=== PATIENT | male | born 1950 | race Caucasian/White ===

== ENCOUNTER 2016-07-18 13:26 | Outpatient (CLI) | payer MEDICARE, OTHER | END 2016-07-18 13:27 | disposition home or self-care (01) | DX: D72.829 Elevated white blood cell count, unspecified (principal) ==

== ENCOUNTER 2016-07-31 10:08 | Day surgery (SDC) | payer MEDICARE, OTHER ==
[2016-07-31] MEDS ORDERED: LACTATED RINGERS 500 ML IV ONE (10:17)
[2016-07-31] MEDS ORDERED: LIDOCAINE-MPF 2% 5 ML VIAL IM ONE (11:00)
[2016-07-31] MEDS ORDERED: MIDAZOLAM 2 MG/2 ML VIAL IVP ONE (11:00)
[2016-07-31] MEDS ORDERED: PROPOFOL 200 MG/20 ML VIAL IVP ONE (11:00)
[2016-07-31] MEDS ORDERED: BRIMONIDINE 0.2% OPHTH DROPS 5 ML OPTH ONE (11:03)
[2016-07-31] MEDS ORDERED: PROPARACAINE 0.5% OPHTH DROPS 15 ML OPTH ONE (11:03)
[2016-07-31] MEDS ORDERED: levoFLOXacin 0.5% OPHTH DROPS 5 ML OPTH ONE (11:03)
[2016-07-31] MEDS ORDERED: EPINEPHrine 1 MG/ML AMP IO ONE (11:03)
[2016-07-31] MEDS ORDERED: TETRACAINE OPHTH DROPS 2 ML OPTH ONE (11:03)
[2016-07-31] MEDS ORDERED: BSS/LIDOCAINE/EPINEPHRINE 1 ML SYRINGE IO ONE (11:04)
[2016-07-31] MEDS ORDERED: CHONDR SULF/HYALURONATE SYRINGE IO ONE (11:04)
== END 2016-07-31 10:09 | disposition home or self-care (01) ==
PROC: 08RJ3JZ Replacement of Right Lens with Synthetic Substitute, Percutaneous Approach (ICD-10-PCS; principal; 2016-07-31 11:15)
DX: E11.36 Type 2 diabetes mellitus with diabetic cataract (principal); H25.9 Unspecified age-related cataract; Z79.84 Long term (current) use of oral hypoglycemic drugs; Z86.73 Personal history of transient ischemic attack (TIA), and cerebral infarction without residual deficits; K21.9 Gastro-esophageal reflux disease without esophagitis
CPT/HCPCS: 66984; V2632; V2787

== ENCOUNTER 2016-08-14 09:37 | Day surgery (SDC) | payer MEDICARE, OTHER ==
[2016-08-14] MEDS ORDERED: LACTATED RINGERS 500 ML IV ONE (09:53)
[2016-08-14] MEDS ORDERED: PHENYLEPHRINE 2.5% OPHTH 2 ML DROPS OPTH ONE (09:59)
[2016-08-14] MEDS ORDERED: CYCLOPENTOLATE 1% OPHTH DROPS 2 ML OPTH ONE (09:59)
[2016-08-14] MEDS ORDERED: KETOROLAC 0.45% OPHTH DROPS OPTH ONE (09:59)
[2016-08-14] MEDS ORDERED: BRIMONIDINE 0.2% OPHTH DROPS 5 ML OPTH ONE ×2 (10:04→10:31)
[2016-08-14] MEDS ORDERED: PROPARACAINE 0.5% OPHTH DROPS 15 ML OPTH ONE ×2 (10:04→10:31)
[2016-08-14] MEDS ORDERED: levoFLOXacin 0.5% OPHTH DROPS 5 ML OPTH ONE ×2 (10:05→10:31)
[2016-08-14] MEDS ORDERED: EPINEPHrine 1 MG/ML AMP IO ONE ×2 (10:05→10:31)
[2016-08-14] MEDS ORDERED: TETRACAINE OPHTH DROPS 2 ML LEFTEYE ONE ×2 (10:05→10:31)
[2016-08-14] MEDS ORDERED: BSS/LIDOCAINE/EPINEPHRINE 1 ML SYRINGE IO ONE ×2 (10:05→10:31)
[2016-08-14] MEDS ORDERED: CHONDR SULF/HYALURONATE SYRINGE IO ONE ×2 (10:05→10:31)
[2016-08-14] MEDS ORDERED: LIDOCAINE-MPF 2% 5 ML VIAL IM ONE (10:30)
[2016-08-14] MEDS ORDERED: PROPOFOL 200 MG/20 ML VIAL IVP ONE (10:30)
== END 2016-08-14 09:38 | disposition home or self-care (01) ==
PROC: 08RK3JZ Replacement of Left Lens with Synthetic Substitute, Percutaneous Approach (ICD-10-PCS; principal; 2016-08-14 10:45)
DX: H25.12 Age-related nuclear cataract, left eye (principal); Z86.73 Personal history of transient ischemic attack (TIA), and cerebral infarction without residual deficits; Z79.01 Long term (current) use of anticoagulants; E11.9 Type 2 diabetes mellitus without complications
CPT/HCPCS: 66984; A9270; V2632; V2787

== ENCOUNTER 2017-09-25 08:00 | Outpatient (CLI) | payer MEDICARE, OTHER ==
[2017-09-25 12:47] LABS: BASOPHILS # (AUTO) 0.1 10^3/uL (0.0-0.1); BASOPHILS % (AUTO) 1.1 %; EOSINOPHILS # (AUTO) 0.2 10^3/uL (0.0-0.7); EOSINOPHILS % (AUTO) 3.1 %; HGB - HEMOGLOBIN 14.2 g/dL (14.0-18.0); LYMPHOCYTES # (AUTO) 2.2 10^3/uL (1.5-3.5); LYMPHOCYTES % (AUTO) 31.2 %; MEAN CORPUSCULAR HEMOGLOBIN 30.4 pg (27.0-31.0); MEAN CORPUSCULAR HGB CONC 33.8 g/dL (32.0-36.0); MEAN CORPUSCULAR VOLUME 90.1 fL (80.0-94.0); MEAN PLATELET VOLUME 9.2 fL (7.4-11.4); MONOCYTES # (AUTO) 0.4 10^3/uL (0.0-1.0); MONOCYTES % (AUTO) 5.2 %; NEUTROPHILS # (AUTO) 4.3 10^3/uL (1.5-6.6); NEUTROPHILS % (AUTO) 59.4 %; PLT - PLATELET COUNT 209 10^3/uL (130-450); RED BLOOD COUNT 4.67 10^6/uL (4.70-6.10); RED CELL DISTRIBUTION WIDTH 14.5 % (12.0-15.0); WHITE BLOOD COUNT 7.2 x10^3/uL (4.8-10.8)
[2017-09-25 13:07] LABS: ALBUMIN 4.4 g/dL (3.2-5.5); ALBUMIN/GLOBULIN RATIO 1.6 (1.0-2.2); ALKALINE PHOSPHATASE 68 IU/L (42-121); ALT ALANINE AMINOTRANSFERASE 29 IU/L (10-60); AST ASPARTATE AMINOTRANSFERASE 27 IU/L (10-42); BILIRUBIN,TOTAL 0.7 mg/dL (0.2-1.0); BUN - BLOOD UREA NITROGEN 17 mg/dL (6-20); CALCIUM 9.4 mg/dL (8.5-10.3); CARBON DIOXIDE - CO2 24 mmol/L (21-32); CHLORIDE 105 mmol/L (101-111); CHOL/HDL RATIO 5.5 (<5.0); CHOLESTEROL 204 mg/dL; GFR - MDRD 75 (>89); GLUCOSE 135 mg/dL (70-100); HDL CHOLESTEROL 37 mg/dL; LDL CHOLESTEROL,CALCULATED 109 mg/dL; LDL/HDL RATIO 2.9 (<3.6); SODIUM 138 mmol/L (135-145); TOTAL PROTEIN 7.1 g/dL (6.7-8.2); VLDL CHOLESTEROL 58 mg/dL
[2017-09-26 13:55] LABS: HEPATITIS C ANTIBODY NON-REACTIVE (NON-REACTIVE)
== END 2017-09-25 08:01 | disposition home or self-care (01) ==
LOC: LAB.R 08:00
PROVIDERS: ATTEND Internal Medicine
DX: K76.0 Fatty (change of) liver, not elsewhere classified (principal); I10 Essential (primary) hypertension; Z12.5 Encounter for screening for malignant neoplasm of prostate; M13.80 Other specified arthritis, unspecified site; E11.9 Type 2 diabetes mellitus without complications; Z72.89 Other problems related to lifestyle
CPT/HCPCS: 80053; 80061; 84443; 85025; 86803; G0103; 83721; 84153

== ENCOUNTER 2017-10-01 14:20 | Outpatient (CLI) | payer MEDICARE, OTHER ==
[2017-10-01 17:52] LABS: HB2 TOTAL 15.2 g/dL; HEMOGLOBIN A1C 0.84 g/dL; HEMOGLOBIN A1C % 7.2 % (4.6-6.2)
== END 2017-10-01 14:21 | disposition home or self-care (01) ==
LOC: LAB.R 14:20
PROVIDERS: ATTEND Internal Medicine
DX: E11.9 Type 2 diabetes mellitus without complications (principal)
CPT/HCPCS: 83036

== ENCOUNTER 2017-10-18 12:50 | Outpatient (CLI) | payer MEDICARE, OTHER ==
--- NOTE | 2017-10-18 17:59 | Ultrasound Report ---
EXAM: CAROTID DOPPLER ULTRASOUND EXAM DATE: 10/18/2017 02:11 PM. CLINICAL HISTORY: Carotid artery stenosis. COMPARISON: 11/21/2015. TECHNIQUE: Real-time sonographic vascular imaging was performed by the upholstery cleaner through the caroti d arterial system with a linear transducer utilizing color-flow, Doppler flow and spectral analysis. Multiple electroplating sales representative static images were saved for review. FINDINGS: Mild to moderate bilateral plaque formation, with slightly increased velocity since previou s exam. RIGHT: RCCA Prox: PSV 95 cm/sec. RCCA Dist: PSV 83 cm/sec, EDV 22 cm/sec. RECA: PSV 124 cm/sec. R Bulb: PSV 159 cm/sec, EDV 48 cm/sec, ICA/CCA ratio 1.91. LOUANN Prox: PSV 192 cm/sec, EDV 50 cm/sec, ICA/CCA ratio 2.31. LOUANN Mid: PSV 114 cm/sec, EDV 46 cm/sec, ICA/CCA ratio 1.37. LOUANN Dist: PSV 91 cm/sec, EDV 33 cm/sec, ICA/CCA ratio 1.09. RVA: PSV 50 cm/sec. RVA flow direction: Antegrade. LEFT: LCCA Prox: PSV 82 cm/sec. LCCA Dist: PSV 112 cm/sec, EDV 23 cm/sec. LECA: PSV 121 cm/sec. L Bulb: PSV 86 cm/sec, EDV 28 cm/sec, ICA/CCA ratio 0.76. LICA Prox: PSV 92 cm/sec, EDV 29 cm/sec, ICA/CCA ratio 0.82. LICA Mid: PSV 106 cm/sec, EDV 36 cm/sec, ICA/CCA ratio 0.94. LICA Dist: PSV 105 cm/sec, EDV 39 cm/sec, ICA/CCA ratio 0.93. LVA: PSV 47 cm/sec. LVA flow direction: Antegrade. Other: None. IMPRESSION: Stenoses less than 50% on the left, slightly above 50% on the right. Validated velocity measurements with angiographic measurements and velocity criteria are extrapolated from diameter data as defined by the Society of Radiologists in Ultrasound Consensus Conference Radi ology 2003; 229;340-346. [facility] Referring Provider Line: [phone] SITE ID: [id number]
== END 2017-10-18 12:51 | disposition home or self-care (01) ==
LOC: DI 12:50
PROVIDERS: ATTEND Internal Medicine
DX: I65.23 Occlusion and stenosis of bilateral carotid arteries (principal)
CPT/HCPCS: 93880

== ENCOUNTER 2018-01-13 08:04 | Outpatient (CLI) | payer MEDICARE, OTHER ==
[2018-01-13 13:55] LABS: HB2 TOTAL 14.4 g/dL; HEMOGLOBIN A1C 0.69 g/dL; HEMOGLOBIN A1C % 6.5 % (4.6-6.2)
== END 2018-01-13 08:05 | disposition home or self-care (01) ==
LOC: LAB.R 08:04
PROVIDERS: ATTEND Internal Medicine
DX: E11.9 Type 2 diabetes mellitus without complications (principal)
CPT/HCPCS: 83036

== ENCOUNTER 2018-03-20 19:00 | Outpatient (CLI) | payer MEDICARE, OTHER | END 2018-03-20 19:01 | disposition critical access hospital (66) | LOC: EMS 19:00 | PROVIDERS: ATTEND Surgery | DX: S09.90XA Unspecified injury of head, initial encounter (principal); R55 Syncope and collapse; R41.82 Altered mental status, unspecified; W19.XXXA Unspecified fall, initial encounter; Y92.009 Unspecified place in unspecified non-institutional (private) residence as the place of occurrence of the external cause | CPT/HCPCS: A0425; A0429 ==

== ENCOUNTER 2018-03-20 19:07 | Emergency (ER) | payer MEDICARE, OTHER ==
[2018-03-20] MEDS ORDERED: SODIUM CHLORIDE 0.9% 1,000 ML IV ONE (19:23)
[2018-03-20 19:31] LABS: BASOPHILS # (AUTO) 0.1 10^3/uL (0.0-0.1); BASOPHILS % (AUTO) 1.2 %; EOSINOPHILS # (AUTO) 0.4 10^3/uL (0.0-0.7); EOSINOPHILS % (AUTO) 4.3 %; HGB - HEMOGLOBIN 13.2 g/dL (14.0-18.0); LYMPHOCYTES # (AUTO) 3.6 10^3/uL (1.5-3.5); LYMPHOCYTES % (AUTO) 42.8 %; MEAN CORPUSCULAR HEMOGLOBIN 32.1 pg (27.0-31.0); MEAN CORPUSCULAR HGB CONC 35.2 g/dL (32.0-36.0); MEAN CORPUSCULAR VOLUME 91.2 fL (80.0-94.0); MONOCYTES # (AUTO) 0.6 10^3/uL (0.0-1.0); NEUTROPHILS # (AUTO) 3.7 10^3/uL (1.5-6.6); NEUTROPHILS % (AUTO) 44.7 %; PLT - PLATELET COUNT 242 10^3/uL (130-450); RED CELL DISTRIBUTION WIDTH 13.6 % (12.0-15.0); WHITE BLOOD COUNT 8.4 x10^3/uL (4.8-10.8)
--- NOTE | 2018-03-20 19:42 | ED Physician Documentation ---
History of Present Illness - Stated complaint Stated Complaint: SYNCOPE/GLF - Chief complaint Chief Complaint: Laceration - History obtained from History obtained from: Patient, Family - History of Present Illness Timing: Today Pain level max: 8 Pain level now: 6 Improved by: nothing Worsened by: standing up - Additonal information Additional information: Patient states he was out in the garage and stood up, felt light headed and dizzy. Then passed out, striking his head on the floor. Has not passed out before. No vomiting. Laceration to forehead. States unsure if he ate anything today. Review of Systems Ten Systems: 10 systems reviewed and negative Constitutional: denies: Fever, Chills Ears: denies: Ear pain Nose: denies: Rhinorrhea / runny nose, Congestion Throat: denies: Sore throat Cardiac: denies: Chest pain / pressure, Palpitations Respiratory: denies: Dyspnea, Cough, Wheezing GI: denies: Nausea, Vomiting, Diarrhea : denies: Dysuria Skin: denies: Rash Musculoskeletal: denies: Back pain Neurologic: reports: Head injury, LOC. denies: Focal weakness, Numbness, Confused, Altered mental status PD PAST MEDICAL HISTORY - Past Medical History Cardiovascular: High cholesterol Respiratory: None Endocrine/Autoimmune: Type 2 diabetes GI: GERD : None HEENT: None Psych: Depression Musculoskeletal: None Derm: Eczema - Past Surgical History Past Surgical History: No - Present Medications Home Medications: Ambulatory Orders Medication Instructions Recorded Confirmed Lansoprazole [Prevacid] 1 tab PO DAILY 04/15/14 03/20/18 Lisinopril 1 tab PO DAILY 04/15/14 03/20/18 Metformin HCl 4 tab PO BID 04/15/14 03/20/18 Atorvastatin Calcium 20 mg PO DAILY 07/30/16 03/20/18 Glimepiride 1 mg PO BID 07/30/16 03/20/18 Meloxicam 1 tab PO DAILY 03/20/18 03/20/18 Ondansetron Odt [Zofran] 4 mg TL Q6H PRN #10 tablet 03/20/18 - Allergies Allergies/Adverse Reactions: Allergies Allergy/AdvReac Type Severity Reaction Status Date / Time levofloxacin [From Levaquin] AdvReac Anxiety Verified 03/20/18 19:11 - Social History Does the pt smoke?: No Smoking Status: Never smoker Does the pt drink ETOH?: Yes Does the pt have substance abuse?: No - POLST Patient has POLST: No PD ED PE NORMAL - Vitals Vital signs reviewed: Yes - General General: Alert and oriented X 3, No acute distress, Well developed/nourished - HEENT HEENT: PERRL, Ears normal, Moist mucous membranes, Pharynx benign, Other (7 cm V-shaped flap laceration to the forehead no scalp hematomas. No palpable skull fractures. Galea intact) - Neck Neck: Supple, no meningeal sign, Other (Mild mid C-spine tenderness to palp ation) - Cardiac Cardiac: RRR, Strong equal pulses - Respiratory Respiratory: No respiratory distress, Clear bilaterally - Abdomen Abdomen: Normal bowel sounds, Soft, Non tender, Non distended - Back Back: No spinal TTP - Derm Derm: Warm and dry - Extremities Extremities: No edema, No calf tenderness / cord - Neuro Neuro: Alert and oriented X 3, technician preventative medicine 2-12 intact, No motor deficit, No sensory deficit, Normal speech - Psych Psych: Normal mood, Normal affect Results - Vitals Vitals: Vital Signs - 24 hr 03/20/18 03/20/18 03/20/18 19:09 19:31 19:50 Temperature 36.6 C Heart Rate 77 69 77 Respiratory 12 13 14 Rate Blood Pressure 84/66 L 131/79 H 126/75 O2 Saturation 97 94 96 03/20/18 03/20/18 20:45 21:41 Temperature Heart Rate 80 82 Respiratory 14 21 Rate Blood Pressure 127/78 133/75 H O2 Saturation 95 97 Oxygen O2 Source Room air - EKG (time done) 1915 Rate: Rate (enter#) (76) Rhythm: NSR Thompson: Normal Intervals: Normal DE QRS: Normal Ischemia: Normal ST segments - Labs Labs: Laboratory Tests 03/20/18 03/20/18 03/20/18 19:20 19:20 19:20 WBC 8.4 RBC 4.10 L Hgb 13.2 L Hct 37.4 L MCV 91.2 MCH 32.1 H MCHC 35.2 RDW 13.6 Plt Count 242 MPV 9.0 Neut # (Auto) 3.7 Lymph # (Auto) 3.6 H Kingman # (Auto) 0.6 Eos # (Auto) 0.4 Baso # (Auto) 0.1 Absolute Nucleated RBC 0.01 Nucleated RBC % 0.1 Sodium 133 L Potassium 4.0 Chloride 101 Carbon Dioxide 25 Anion Gap 7.0 BUN 24 H Creatinine 1.2 Estimated GFR (MDRD) 60 L Glucose 192 H Calcium 9.1 Total Bilirubin 0.5 AST 25 ALT 28 Alkaline Phosphatase 71 Troponin I < 0.04 Total Protein 7.2 Albumin 4.0 Globulin 3.2 Albumin/Globulin Ratio 1.3 Lipase 43 - Rads (name of study) CT head Radiology: Prelim report reviewed, EMP read contemporaneously, See rad report (No acute abnormality) CT cervical spine Radiology: Prelim report reviewed, EMP read contemporaneously, See rad report (No acute bony abnormality) cxr Radiology: Prelim report reviewed, EMP read contemporaneously, See rad report (normal) Procedures - Laceration (location) forehead Length in cm: 7 Wound type: Flap (v shaped, down to galea) Neurovascular status: Sensory intact, Motor intact, Vascular intact Anesthesia: Lidocaine 2% with epi Wound Preparation: Irrigated copiously NS, Wound explored, To the base Skin layer closure: Nylon, Interrupted, Size #-0 - enter number (4), Sutures - enter # Other: Patient tolerated well, No complications, Neurovascular intact, Tetanus booster given (tdap) Complexity: Simple PD MEDICAL DECISION MAKING - ED course Complexity details: reviewed old records, reviewed results, re-evaluated patient, considered differential, d/w patient, d/w family ED course: Patient is a 67-year-old male who presents to the emergency department after what sounds like vasovagal syncope. Was initially hypotensive as well. Blood pressure and heart rate returned to normal after IV fluids. Laceration repaired. Tolerated well. Warnings of infection and instructions on wound care given at bedside. Also counseled on how to minimize scarring. No acute findings on head CT, cervical spine CT or chest x-ray. No acute EKG findings or laboratory testing findings. No evidence of arrhythmia. We will have him follow-up with his doctor for further care. Patient and family counseled regarding signs and symptoms for which I believe and urgent re-evaluation would be necessary. Patient with good understanding of and agreement to plan and is comfortable going home at this time This document was made in part using voice recognition software. While efforts are made to proofread this document, sound alike and grammatical errors may occur. - Sepsis Event Vital Signs: Vital Signs - 24 hr 03/20/18 03/20/18 03/20/18 19:09 19:31 19:50 Temperature 36.6 C Heart Rate 77 69 77 Respiratory 12 13 14 Rate Blood Pressure 84/66 L 131/79 H 126/75 O2 Saturation 97 94 96 03/20/18 03/20/18 20:45 21:41 Temperature Heart Rate 80 82 Respiratory 14 21 Rate Blood Pressure 127/78 133/75 H O2 Saturation 95 97 Oxygen O2 Source Room air Departure - Departure Disposition: 01 Home, Self Care Clinical Impression: Syncope Qualifiers: Syncope type: unspecified Qualified Code(s): R55 - Syncope and collapse Forehead laceration Qualifiers: Encounter type: initial encounter Qualified Code(s): S01.81XA - Laceration without foreign body of other part of head, initial encounter Condition: Good Instructions: ED Head Injury Closed, ED Laceration Facial Sutr Tape, ED Syncope Vasovagal, ED Fainting Unkn Cause Follow-Up: Nacho Molina MD [Primary Care Provider] - Within 1 week Prescriptions: Ondansetron Odt [Zofran] 4 mg TL Q6H PRN #10 tablet PRN Reason: Nausea / Vomiting Comments: Return if you worsen. Drink plenty of fluids at home. Keep the wound clean. Sutures should be removed in about 14 days with your doctor. Discharge Date/Time: 03/20/18 21:53
[2018-03-20 19:45] LABS: ALBUMIN/GLOBULIN RATIO 1.3 (1.0-2.2); BILIRUBIN,TOTAL 0.5 mg/dL (0.2-1.0); CALCIUM 9.1 mg/dL (8.5-10.3); CREATININE 1.2 mg/dL (0.6-1.2); TOTAL PROTEIN 7.2 g/dL (6.7-8.2)
[2018-03-20] MEDS ORDERED: ONDANSETRON 4 MG/2 ML VIAL IVP STA (20:16)
--- NOTE | 2018-03-20 20:19 | CT Report ---
Reason: fall, head injury Procedure Date: 03/20/2018 Accession Number: [id number] / [id number] Procedure: CT - Head W/O CPT Code: FULL RESULT: EXAM: CT HEAD EXAM DATE: 03/20/2018 07:59 PM. CLINICAL HISTORY: Fall, head injury. COMPARISON: BRAIN W/O 04/15/2014. TECHNIQUE: Multiaxial CT images were obtained from the foramen magnum to the vertex. Reformats: Coronal. IV contrast: None. In accordance with CT protocol optimization, one or more of the following dose reduction techniques were utilized for this exam: automated exposure control, adjustment of mA and/or KV based on patient size, or use of iterative reconstructive technique. FINDINGS: Parenchyma: No intraparenchymal hemorrhage. No evidence of mass, midline shift, or CT findings of acute infarction. Venegas-white differentiation is distinct. Diffuse chronic microangiopathic white matter changes are evident. Extraaxial Spaces: Normal for age. No subdural or epidural collections identified. Ventricles: The ventricles and cortical sulci are enlarged, consistent with age-related tissue loss. Sinuses and orbits: Imaged paranasal sinuses, orbits, and mastoids show no significant abnormality. Bones: No evidence of fracture or calvarial defect. Other: None. IMPRESSION: Generalized age-related cortical atrophic changes without evidence of acute intracranial abnormality. [facility]
--- NOTE | 2018-03-20 20:24 | CT Report ---
Reason: fall, neck pain Procedure Date: 03/20/2018 Accession Number: [id number] / [id number] Procedure: CT - Cervical Spine W/O CPT Code: FULL RESULT: EXAM: CT CERVICAL SPINE WITHOUT CONTRAST DATE: 03/20/2018 08:09 PM. HISTORY: Fall, neck pain. COMPARISONS: None. TECHNIQUE: Thin-section axial images were acquired of the cervical spine without contrast. Post-processing: Coronal and sagittal reformats. Other: None. In accordance with CT protocol optimization, one or more of the following dose reduction techniques were utilized for this exam: automated exposure control, adjustment of mA and/or KV based on patient size, or use of iterative reconstructive technique. FINDINGS: Alignment: No scoliosis or spondylolisthesis. Bones: No fracture or bone lesion. Interspace Levels/Facets: Multilevel mild degenerative changes. Greatest degree of central spinal compromise is borderline at C6-C7. Multilevel moderate bony neural foraminal compromise. Musculature: Normal. No fatty atrophy. Other: The paravertebral and prevertebral soft tissues are unremarkable. The lung apices are clear. IMPRESSION: No acute bony abnormality. [facility]
[2018-03-20] MEDS ORDERED: LIDOCAINE 2%-EPI 1:100000 20 ML MDV SUBQ STA (20:47)
[2018-03-20] MEDS ORDERED: TETANUS/DIPHTHERIA/PERTUSSIS 0.5 ML SYRINGE IM ONE (20:47)
--- NOTE | 2018-03-20 20:53 | XRAY Report ---
Reason: syncope Procedure Date: 03/20/2018 Accession Number: [id number] / [id number] Procedure: XR - Chest 1 View X-Ray CPT Code: 63609 FULL RESULT: EXAM: CHEST RADIOGRAPHY EXAM DATE: 03/20/2018 08:20 PM. CLINICAL HISTORY: Syncope. COMPARISON: None. TECHNIQUE: 1 view. FINDINGS: Lungs/Pleura: No focal opacities evident. No pleural effusion. No pneumothorax. Mediastinum: Within exam limitations, the cardiomediastinal contour is normal. Other: None. IMPRESSION: Normal single view chest. [facility]
[2018-03-20] MEDS ORDERED: BACITRACIN OINT TOP STA (21:36)
[2018-03-20 21:41] VITALS: BP 133/75
== END 2018-03-20 21:53 | disposition home or self-care (01) ==
LOC: EDUNIT# → ED 19:07
DX: S01.81XA Laceration without foreign body of other part of head, initial encounter (principal); R55 Syncope and collapse; E11.9 Type 2 diabetes mellitus without complications; Z79.84 Long term (current) use of oral hypoglycemic drugs; Z23 Encounter for immunization
CPT/HCPCS: 12014; 36415; 70450; 71045; 72125; 80053; 83690; 84484; 85025; 90471; 90715; 93005; 96361; 96374; 99284; 99285; A9270

== ENCOUNTER 2018-06-12 08:00 | Outpatient (CLI) | payer MEDICARE, OTHER ==
[2018-06-13 16:50] LABS: HB2 TOTAL 14.7 g/dL; HEMOGLOBIN A1C 0.74 g/dL; HEMOGLOBIN A1C % 6.8 % (4.6-6.2)
== END 2018-06-12 23:59 ==
LOC: LAB.R 08:00
PROVIDERS: ATTEND Internal Medicine
DX: E11.9 Type 2 diabetes mellitus without complications (principal)
CPT/HCPCS: 83036

== ENCOUNTER 2018-10-23 11:05 | Outpatient (CLI) | payer MEDICARE, OTHER | END 2018-10-23 11:06 | disposition home or self-care (01) | LOC: DI 11:05 | PROVIDERS: ATTEND Family Medicine | DX: I35.8 Other nonrheumatic aortic valve disorders (principal); M60.9 Myositis, unspecified | CPT/HCPCS: 93306 ==

== ENCOUNTER 2018-11-19 08:04 | Outpatient (CLI) | payer MEDICARE, OTHER ==
[2018-11-19 08:57] LABS: ALBUMIN 3.9 g/dL (3.2-5.5); ALBUMIN/GLOBULIN RATIO 1.1 (1.0-2.2); ALKALINE PHOSPHATASE 96 IU/L (42-121); ALT ALANINE AMINOTRANSFERASE 87 IU/L (10-60); AST ASPARTATE AMINOTRANSFERASE 42 IU/L (10-42); BILIRUBIN,TOTAL 0.6 mg/dL (0.2-1.0); BUN - BLOOD UREA NITROGEN 20 mg/dL (6-20); CALCIUM 9.7 mg/dL (8.5-10.3); CARBON DIOXIDE - CO2 26 mmol/L (21-32); CHLORIDE 100 mmol/L (101-111); CK- CREATINE KINASE 122 IU/L (22-269); CREATININE 0.9 mg/dL (0.6-1.2); GFR - MDRD 84 (>89); GLUCOSE 122 mg/dL (70-100); SODIUM 138 mmol/L (135-145); TOTAL PROTEIN 7.4 g/dL (6.7-8.2)
[2018-11-19 09:01] LABS: HB2 TOTAL 14.4 g/dL; HEMOGLOBIN A1C 0.78 g/dL; HEMOGLOBIN A1C % 7.1 % (4.6-6.2)
[2018-11-19 09:08] LABS: THYROID STIMULATING HORMONE 1.99 uIU/mL (0.34-5.60)
[2018-11-19 09:10] LABS: FREE T4 (FREE THYROXINE) 0.84 ng/dL (0.58-1.64)
[2018-11-19 09:21] LABS: BASOPHILS # (AUTO) 0.1 10^3/uL (0.0-0.1); BASOPHILS % (AUTO) 0.7 %; EOSINOPHILS # (AUTO) 0.4 10^3/uL (0.0-0.7); EOSINOPHILS % (AUTO) 5.3 %; HGB - HEMOGLOBIN 13.4 g/dL (14.0-18.0); LYMPHOCYTES % (AUTO) 26.1 %; MEAN CORPUSCULAR HEMOGLOBIN 28.6 pg (27.0-31.0); MEAN CORPUSCULAR HGB CONC 32.7 g/dL (32.0-36.0); MEAN CORPUSCULAR VOLUME 87.3 fL (80.0-94.0); MONOCYTES # (AUTO) 0.5 10^3/uL (0.0-1.0); MONOCYTES % (AUTO) 6.2 %; NEUTROPHILS # (AUTO) 4.8 10^3/uL (1.5-6.6); NEUTROPHILS % (AUTO) 61.7 %; PLT - PLATELET COUNT 225 10^3/uL (130-450); RED BLOOD COUNT 4.71 10^6/uL (4.70-6.10); RED CELL DISTRIBUTION WIDTH 14.6 % (12.0-15.0); WHITE BLOOD COUNT 7.8 x10^3/uL (4.8-10.8)
[2018-11-19 09:57] LABS: RHEUMATOID FACTOR NEGATIVE (Negative)
[2018-11-19 10:21] LABS: CRP - C-REACTIVE PROTEIN < 1.0 mg/dL (0-1.0)
== END 2018-11-19 08:05 | disposition home or self-care (01) ==
LOC: LAB 08:04
PROVIDERS: ATTEND Family Medicine
DX: M60.9 Myositis, unspecified (principal); E11.9 Type 2 diabetes mellitus without complications; I10 Essential (primary) hypertension; I35.8 Other nonrheumatic aortic valve disorders; I63.9 Cerebral infarction, unspecified; R55 Syncope and collapse; M13.80 Other specified arthritis, unspecified site
CPT/HCPCS: 36415; 80053; 82550; 83036; 83735; 84439; 84443; 84481; 85025; 85651; 86038; 86140; 86430

== ENCOUNTER 2018-12-10 06:08 | Day surgery (SDC) | payer MEDICARE, OTHER ==
[2018-12-10] MEDS ORDERED: LACTATED RINGERS 1,000 ML IV ONE (06:50)
[2018-12-10] MEDS ORDERED: LIDO GARGLE 30 ML BOTTLE ONE (07:32)
--- NOTE | 2018-12-10 07:49 | HISTORY & PHYSICAL EXAMINATION ---
PMH/PSH - Past Medical History Cardiovascular: positive: High cholesterol Respiratory: positive: None Endocrine/Autoimmune: positive: Type 2 diabetes GI: positive: GERD : positive: None HEENT: positive: None Psych: positive: Depression Musculoskeletal: positive: None Derm: positive: None, Eczema MRSA Hx?: No - Past Surgical History General: positive: Colonoscopy Social & Family Hx - Social History Does the pt smoke?: No Smoking Status: Never smoker Does the pt drink ETOH?: Yes Does the pt have substance abuse?: No - POLST Patient has POLST: No Meds/Allgy - Home Medications Home Medications: Ambulatory Orders Medication Instructions Recorded Confirmed Metformin HCl 1,000 mg PO BID 04/15/14 12/10/18 Glimepiride 1 mg PO BID 07/30/16 12/09/18 Meloxicam 1 tab PO DAILY 03/20/18 12/10/18 Omeprazole 20 mg PO DAILY 12/09/18 12/09/18 - Allergies Allergies/Adverse Reactions: Allergies Allergy/AdvReac Type Severity Reaction Status Date / Time levofloxacin [From Levaquin] AdvReac Anxiety Verified 12/10/18 07:02 Exam - Vital Signs Vital Signs: Vital Signs x48h Temp Pulse Resp BP Pulse Ox 12/10/18 06:34 36.6 C 78 16 144/87 H 94 Results - Lab Results Other Lab Results: Lab Results x24hrs 12/10/18 Range/Units 06:46 POC Whole Bld Glucose 147 H (70 - 100) mg/dL Impression/Plan - Problem List Problem List: Dr. Fredi Asif initially sent this very pleasant 60-year-old male to my office in consultation for a screening colonoscopy as well as an EGD for persistent GERD. The patient continues to describe his bowel movements as regular normal and he completed the prep. He denies nausea, vomiting, constipation, diarrhea, melena, hematochezia, hematemesis, abdominal pain, unexplained weight loss, or change in the color, character, or caliber of his stools. As noted during her visit on October 07, 2018 the patient has had a previous colonoscopy in January [address] Carlos Jeronimo using 3 mg of midazolam 100 mcg of fentanyl. At that time left-sided diverticulosis was noted as well as polyps at 70 and 80 cm from the anal verge. 1 of the polyps turned out to be a tubular adenoma and the other was cauterized unremarkable mucosa consistent with a tag. The recommendation was made for a repeat colonoscopy in 5 years. He does complain of increased GERD/heartburn and he is still concerned about the possibility of a premalignant condition. 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 Today he did not mention the fact that his sister could feel everything to her colonoscopy but could not move. Again, this was not the experience that he had with Dr. Carlos Jeronimo. Current Allergies: LEVAQUIN (Critical) * STATINS (Critical) * LEVOFLOXACIN (Mild) Current Meds: OMEPRAZOLE 20 MG ORAL CAPSULE DELAYED RELEASE (OMEPRAZOLE) One BID; Route: ORAL MELOXICAM 15 MG ORAL TABLET (MELOXICAM) 1 po daily; Route: ORAL FREESTYLE AHMET SENSOR SYSTEM (CONTINUOUS BLOOD GLUC SENSOR) Use as directed to monitor diabetes DIFLUCAN 150 MG ORAL TABLET (FLUCONAZOLE) One pill twice a week TRIAMCINOLONE ACETONIDE 0.1 % EXTERNAL CREAM (TRIAMCINOLONE ACETONIDE) apply to affected area BID; Route: EXTERNAL NYSTATIN 687960 UNIT/GM EXTERNAL CREAM (NYSTATIN) BID to rash; Route: EXTERNAL CYCLOBENZAPRINE HCL 10 MG ORAL TABLET (CYCLOBENZAPRINE HCL) 1 QHS prn muscle spasm; Route: ORAL PREVACID 15 MG ORAL CAPSULE DELAYED RELEASE (LANSOPRAZOLE) QDay; Route: ORAL CLOPIDOGREL BISULFATE 75 MG ORAL TABLET (CLOPIDOGREL BISULFATE) QDay; Route: ORAL ATORVASTATIN CALCIUM 20 MG ORAL TABLET (ATORVASTATIN CALCIUM) 1 po QHS; Route: ORAL LISINOPRIL 10 MG ORAL TABLET (LISINOPRIL) 1/2 tab by mouth daily in the evening NYSTATIN-TRIAMCINOLONE 490895-9.1 UNIT/GM-% EXTERNAL CREAM (NYSTATIN- TRIAMCINOLONE) Apply to rash BID METFORMIN HCL 500 MG ORAL TABLET (METFORMIN HCL) 2 BID; Route: ORAL PREDNISONE 5 MG ORAL TABLET (PREDNISONE) 2/Day; Route: ORAL GLIMEPIRIDE 1 MG ORAL TABLET (GLIMEPIRIDE) BID GLIPIZIDE 5 MG ORAL TABLET (GLIPIZIDE) Take one tab daily in AM; Route: ORAL PREDNISONE 10 MG ORAL TABLET (PREDNISONE) Take one daily CLOBETASOL PROPIONATE 0.05 % EXTERNAL OINTMENT (CLOBETASOL PROPIONATE) Use sparingly on hands twice a day until healed CLOPIDOGREL BISULFATE 75 MG ORAL TABLET (CLOPIDOGREL BISULFATE) Take one tab by mouth daily; Route: ORAL ASPIRIN EC 81 MG ORAL TABLET DELAYED RELEASE (ASPIRIN) 1 po daily LIPITOR 20 MG ORAL TABLET (ATORVASTATIN CALCIUM) Take one tablet by mouth at bedtime; Route: ORAL LISINOPRIL 10 MG ORAL TABLET (LISINOPRIL) Take one tablet by mouth daily METFORMIN HCL ER 500 MG ORAL TABLET EXTENDED RELEASE 24 IDEA SPHERE only allows for 2000 characters per field and this is not enough to input the patient's medications. Please refer to the patient or another list for an accurate list of the patient's medications. Even though his medication list states that he is on prednisone he was restarted on his prednisone recently due to generalized aches and pains. Past Medical History: Left body stroke 2014 High Cholesterol Recent Fainting Shortness of Breath Polio as a child Acid reflux Depression Past Surgical History: Bilateral cataracts Colonoscopy as mentioned above in 2007 and 2004 Family History Summary: Father with heart disease Brother Risk Factors: Smoked Tobacco Use: Never smoker Smokeless Tobacco Use: Never Passive Smoke Exposure: no HIV High Risk Behavior: no Caffeine Use: 3 drinks per day Exercise: yes Times/wk: varies Type of Exercise: punching bag Seatbelt Use: 100 % Sun Exposure: rarely Alcohol Use: no Drug Use: no Review of Systems CONSTITUTIONAL: No weight loss, fever, chills, weakness or fatigue. HEENT: Eyes: No visual loss, blurred vision, double vision or yellow sclerae. Ears, Nose, Throat: No hearing loss, sneezing, congestion, runny nose or sore throat. SKIN: No rash or itching. CARDIOVASCULAR: No chest pain, chest pressure or chest discomfort. No palpitations or edema. RESPIRATORY: No shortness of breath, cough or sputum. GASTROINTESTINAL: No anorexia, nausea, vomiting or diarrhea. No abdominal pain or blood. GENITOURINARY: No dysuria. No impotence. NEUROLOGICAL: No headache, dizziness, syncope, paralysis, ataxia, numbness or tingling in the extremities. No change in bowel or bladder control. MUSCULOSKELETAL: No muscle, back pain, joint pain or stiffness. HEMATOLOGIC: No anemia, bleeding or bruising. LYMPHATICS: No enlarged nodes. No history of splenectomy. PSYCHIATRIC: No anxiety. Some depression. ENDOCRINOLOGIC: No reports of sweating, cold or heat intolerance. No polyuria or polydipsia. ALLERGIES: No history of asthma, hives, eczema or rhinitis. Vital Signs: Please refer to nurse's notes. Allergies: LEVAQUIN (Critical) * STATINS (Critical) * LEVOFLOXACIN (Mild) Physical Exam General: 68-year old somewhat sleepy stocky male evaluated in room [facility] at [facility]'s managed care coordinator unit, appears stated age, well developed, well nourished HEENT: Normocephalic, atraumatic, extraocular movement intact, mucous membranes pink and moist, sclera anicteric and not injected, post hair brown and mustache, male pattern baldness Neck: Supple without pain on palpation, mass or bruit Cardiac: Regular rate and rhythm without rub, or gallop, very loud systolic ejection murmur (patient was unaware that he had a murmur) Chest: Clear to auscultation bilaterally Abdomen: Soft, nontender, normoactive bowel sounds, no hepatomegaly, no splenomegaly Genitourinary: Deferred Rectal: Deferred until colonoscopy Extremities: No gross neurovascular problem, no clubbing, cyanosis or edema, nontender Gait: No gross motor deficit Psychiatric: Alert and oriented to person place and time, asks and answers questions appropriately, mood and affect appropriate Impression & Recommendations: Problem # 1: Preop exam for screening colonoscopy (ICD-V72.84) (RPG56-T78.818) Screening colonoscopy with possible biopsies and/or polypectomies. Indications, procedure, alternatives (such as barium enema, Cologuard and even no procedure at all) and risks including but not limited to perforation requiring operative repair, bleeding with its risks, and were fully explained to him. In the office, I rony diagrams explaining the colonic anatomy and the proposed procedure and handed it to him. In the office, conscious sedation was discussed at length with him as were its risks including but not limited to loss of airway, aspiration, respiratory depression, and not enough relief of pain and anxiety and he indicated that he wished to have conscious sedation for his procedure. In the office, I explained that MAC anesthesia is associated with a higher incidence of colon perforation. Review of his history does not reveal any significant systemic disease that would contraindicate use of conscious sedation or MAC anesthesia. All questions were fully answered. Verbal and written consent was obtained. The patient in preparation for his colonoscopy has been n.p.o. and his colon has been mechanically prepped. 20 minutes of [id number]-qqrp time spent with the patient the majority of which was spent in discussion and in the generation of this document Problem # 2: GERD (ICD-530.81) (ZTD51-W18.9) Esophagogastroduodenoscopy with possible biopsies and/or polypectomies. Indications, procedure, alternatives and risks including but not limited to perforation requiring operative repair, bleeding with its risks, and were fully explained to him. In the office, I rony diagrams explaining the upper gastrointestinal anatomy and the proposed procedure and handed it to him. In the office, conscious sedation was discussed at length with him as were its risks including but not limited to loss of airway, aspiration, respiratory depression, and not enough relief of pain and anxiety and he indicated that he wished to have conscious sedation for his procedure. In the office, I explained that MAC anesthesia is associated with a higher incidence of colon perforation. Review of his history does not reveal any significant systemic disease that would contraindicate use of conscious sedation or MAC anesthesia. All questions were fully answered. Verbal and written consent was obtained. The patient in preparation for his EGD has been n.p.o. 20 minutes of oyyb-gf-ldak time spent with the patient the majority of which was spent in discussion and in the generation of this document Problem # 3: Ejection systolic murmur (ICD-785.2) (STU15-T60.1) The systolic ejection murmur was evaluated as an patient preoperatively via an echo and I was given the "green light" to proceed with this procedure.
[2018-12-10] MEDS ORDERED: fentaNYL 250 MCG/5 ML VIAL IVP ONE (07:54)
[2018-12-10] MEDS ORDERED: MIDAZOLAM 2 MG/2 ML VIAL IVP ONE (07:54)
[2018-12-10] MEDS ORDERED: LIDO GARGLE 30 ML BOTTLE TOP ONE (07:59)
[2018-12-10 08:59] VITALS: BP 122/77
== END 2018-12-10 06:09 | disposition home or self-care (01) ==
LOC: SDS 06:08
PROVIDERS: ATTEND Surgery
PROC: 0DBN8ZZ Excision of Sigmoid Colon, Via Natural or Artificial Opening Endoscopic (ICD-10-PCS; 2018-12-10)
PROC: 0DB38ZX Excision of Lower Esophagus, Via Natural or Artificial Opening Endoscopic, Diagnostic (ICD-10-PCS; 2018-12-10)
PROC: 0DBK8ZZ Excision of Ascending Colon, Via Natural or Artificial Opening Endoscopic (ICD-10-PCS; principal; 2018-12-10 07:30)
PROC: 0DBL8ZZ Excision of Transverse Colon, Via Natural or Artificial Opening Endoscopic (ICD-10-PCS; 2018-12-10 07:30)
DX: Z12.11 Encounter for screening for malignant neoplasm of colon (principal); D12.2 Benign neoplasm of ascending colon; D12.3 Benign neoplasm of transverse colon; D12.5 Benign neoplasm of sigmoid colon; K57.30 Diverticulosis of large intestine without perforation or abscess without bleeding; K64.8 Other hemorrhoids; K21.0 Gastro-esophageal reflux disease with esophagitis; K44.9 Diaphragmatic hernia without obstruction or gangrene; K31.7 Polyp of stomach and duodenum; E11.9 Type 2 diabetes mellitus without complications; R01.1 Cardiac murmur, unspecified; Z79.84 Long term (current) use of oral hypoglycemic drugs; Z79.899 Other long term (current) drug therapy
CPT/HCPCS: 43239; 45380; A9270; J3010; J7120

== ENCOUNTER 2020-01-06 07:07 | Outpatient (CLI) | payer MEDICARE, OTHER ==
--- NOTE | 2020-01-06 09:49 | XRAY Report ---
PROCEDURE: Knee Standing BILAT INDICATIONS: RIGHT KNEE PAIN TECHNIQUE: 3 weight bearing views of the bilateral knee. COMPARISON: None. FINDINGS: Bones: No acute fractures or dislocations. No suspicious bony lesions. Mild tricompartmental degen erative changes of the bilateral knee most prominent in the patellofemoral compartment and more sever e on the right. Minimal medial femorotibial compartment joint space narrowing. Soft tissues: No knee joint effusions. No suspicious soft tissue calcification. IMPRESSION: Mild tricompartmental osteoarthrosis of the bilateral knee as described above. No acute osseous abnor malities. Reviewed by: Sesar Orellana MD on 01/06/2020 9:48 AM PDT Approved by: Sesar Orellana MD on 01/06/2020 9:48 AM PDT Station ID: [id number]
== END 2020-01-06 07:08 | disposition home or self-care (01) ==
LOC: DI 07:07
PROVIDERS: ATTEND Physician Assistant
DX: M17.0 Bilateral primary osteoarthritis of knee (principal)
CPT/HCPCS: 73565

== ENCOUNTER 2020-01-09 11:49 | Emergency (ER) | payer MEDICARE, OTHER ==
--- NOTE | 2020-01-09 12:10 | ED Physician Documentation ---
PD HPI NVD - Stated complaint Stated Complaint: NAUSEA - Chief complaint Chief Complaint: General - History obtained from History obtained from: Patient - History of Present Illness Timing - onset: Yesterday Timing - details: Abrupt onset (onset when got up to standing, felt vertigo and had difficulty with balance. Burney doubled vision with the vertigo. Improved when held still. No focal weakness, vision loss, difficulty with speech nor sentence formation. Burney he was falling to left with walking. No tinnitus nor hearing change.), Still present (improved quite a bit overnight, and awoke with just slight vertigo with head movement and nausea but only mild now.) Associated symptoms: Dizzy. No: Fever, Abdominal pain, Chest pain, Near syncope / syncope Contributing factors: Other (no recent med change. Last new meds were for prostate but about 3 months ago. Has had some postural lightheadedness with those, but no prior vertigo.). No: Sick contact, Bad food, Travel, Recent antibiotics Improved by: Laying still Worsened by: Moving Similar symptoms before: Has not had sx before Recently seen: Not recently seen Review of Systems Constitutional: denies: Fever, Chills Eyes: denies: Loss of vision, Photophobia Ears: denies: Ear pain, Tinnitus/ringing Nose: denies: Rhinorrhea / runny nose, Congestion Throat: denies: Sore throat Cardiac: denies: Chest pain / pressure, Palpitations Respiratory: denies: Dyspnea, Cough Neurologic: denies: Focal weakness, Numbness, Near syncope, Confused, Altered mental status, Headache, Head injury PD PAST MEDICAL HISTORY - Past Medical History Cardiovascular: High cholesterol Respiratory: None Endocrine/Autoimmune: Type 2 diabetes GI: GERD : None HEENT: None Psych: Depression Musculoskeletal: None Derm: Eczema - Past Surgical History Past Surgical History: No - Present Medications Home Medications: Ambulatory Orders Medication Instructions Recorded Confirmed Metformin HCl 1,000 mg PO BID 04/15/14 01/09/20 Glimepiride 1 mg PO BID 07/30/16 01/09/20 Meloxicam 1 tab PO DAILY 03/20/18 01/09/20 Omeprazole 20 mg PO DAILY 12/09/18 01/09/20 Meclizine HCl [Motion Sickness 25 mg PO Q6H PRN #25 tablet 01/09/20 Relief] - Allergies Allergies/Adverse Reactions: Allergies Allergy/AdvReac Type Severity Reaction Status Date / Time levofloxacin [From Levaquin] AdvReac Anxiety Verified 01/09/20 12:06 - Social History Does the pt smoke?: No Smoking Status: Never smoker Does the pt drink ETOH?: Yes Does the pt have substance abuse?: No - POLST Patient has POLST: No PD ED PE NORMAL - Vitals Vital signs reviewed: Yes - General General: Alert and oriented X 3, No acute distress, Well developed/nourished - HEENT HEENT: PERRL, EOMI (nystagmus to the left horizontally), Pharynx benign - Neck Neck: Supple, no meningeal sign, No adenopathy, No bruit - Cardiac Cardiac: RRR, No murmur - Respiratory Respiratory: Clear bilaterally - Derm Derm: Normal color, Warm and dry - Extremities Extremities: Normal ROM s pain, No edema, No calf tenderness / cord - Neuro Neuro: Alert and oriented X 3, 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, No motor deficit, No sensory deficit, Normal speech, Other Eye Opening: Spontaneous Motor: Obeys Commands Verbal: Oriented GCS Score: 15 - Psych Psych: Normal mood, Normal affect Results - Vitals Vitals: Vital Signs - 24 hr 01/09/20 01/09/20 12:04 13:00 Temperature 36.8 C Heart Rate 82 76 Respiratory 20 11 L Rate Blood Pressure 155/80 H 144/73 H O2 Saturation 98 96 Oxygen O2 Source Room air - Labs Labs: Laboratory Tests 01/09/20 01/09/20 01/09/20 12:00 12:00 12:00 WBC 8.6 RBC 4.61 L Hgb 13.3 L Hct 40.8 L MCV 88.5 MCH 28.9 MCHC 32.6 RDW 14.6 Plt Count 239 MPV 11.1 Neut # (Auto) 6.4 Lymph # (Auto) 1.7 [place] # (Auto) 0.4 Eos # (Auto) 0.1 Baso # (Auto) 0.0 Absolute Nucleated RBC 0.00 Nucleated RBC % 0.0 ESR 10 Sodium 136 Potassium 3.9 Chloride 101 Carbon Dioxide 21 Anion Gap 14.0 H BUN 17 Creatinine 1.0 Estimated GFR (MDRD) 74 L Glucose 187 H POC Whole Bld Glucose Calcium 9.5 Magnesium 1.9 Total Bilirubin 0.9 AST 53 H ALT 114 H Alkaline Phosphatase 63 Total Protein 7.0 Albumin 4.4 Globulin 2.6 Albumin/Globulin Ratio 1.7 Lipase 34 Vitamin B12 01/09/20 01/09/20 12:00 12:14 WBC RBC Hgb Hct MCV MCH MCHC RDW Plt Count MPV Neut # (Auto) Lymph # (Auto) [place] # (Auto) Eos # (Auto) Baso # (Auto) Absolute Nucleated RBC Nucleated RBC % ESR Sodium Potassium Chloride Carbon Dioxide Anion Gap BUN Creatinine Estimated GFR (MDRD) Glucose POC Whole Bld Glucose 185 H Calcium Magnesium Total Bilirubin AST ALT Alkaline Phosphatase Total Protein Albumin Globulin Albumin/Globulin Ratio Lipase Vitamin B12 271 - Rads (name of study) head and neck Angio Radiology: Prelim report reviewed, Discussed with rads (50% ICA stenosis; no significant stenoses. No areas of vessel occlusions. No CVA/masses/bleeding. ), See rad report PD MEDICAL DECISION MAKING - ED course Complexity details: reviewed results (normal head CT and angio. No noted CVA/local lesions/ and normal blood flow. Reasonable screening. ), re-evaluated patient (feeling much better with Meclizine. Positional vertigo improved with Meclizine. Has nystagmus. and normal head CT/angio - I feel is reasonable at this time. ), considered differential (marked vertigo and trouble walking straight yesterday. Still with positional vertiog and nausea today, but much better. ), d/w patient Departure - Departure Disposition: 01 Home, Self Care Clinical Impression: Acute onset of severe vertigo Acute labyrinthitis Qualifiers: Laterality: unspecified laterality Qualified Code(s): H83.09 - Labyrinthitis, unspecified ear Condition: Stable Record reviewed to determine appropriate education?: Yes Instructions: ED Vertigo Unspecified Follow-Up: Fredi Asif MD [Primary Care Provider] - Prescriptions: Meclizine HCl [Motion Sickness Relief] 25 mg PO Q6H PRN #25 tablet PRN Reason: Vertigo Comments: Continue usual medications. Stay well-hydrated. Take a baby aspirin a day. Your labs and CT scan did not show any obvious vascular occlusions or signs of stroke tumor or bleeding. Your symptoms sound more likely peripheral vertigo from the inner ear. Continue your prednisone 10 mg a day for another 3 to 4 days and then back to the 5 mg. Add meclizine 25 mg every 6-8 hours if needed for dizziness/nausea. Recheck if not improved well over the next several days and return if worsening. Discharge Date/Time: 01/09/20 15:21
[2020-01-09] MEDS ORDERED: MECLIZINE 12.5 MG TABLET PO STA (12:47)
[2020-01-09] MEDS ORDERED: SODIUM CHLORIDE 0.9% 1,000 ML IV STA (12:48)
[2020-01-09 13:01] VITALS: BP 144/73
[2020-01-09] MEDS ORDERED: IOVERSOL 320 100 ML VIAL IVP ONE ×2 (13:09→14:07)
[2020-01-09 13:16] LABS: BASOPHILS % (AUTO) 0.3 %; EOSINOPHILS # (AUTO) 0.1 10^3/uL (0.0-0.7); EOSINOPHILS % (AUTO) 0.9 %; HGB - HEMOGLOBIN 13.3 g/dL (14.0-18.0); LYMPHOCYTES # (AUTO) 1.7 10^3/uL (1.5-3.5); LYMPHOCYTES % (AUTO) 20.2 %; MEAN CORPUSCULAR HEMOGLOBIN 28.9 pg (27.0-31.0); MEAN CORPUSCULAR HGB CONC 32.6 g/dL (32.0-36.0); MEAN CORPUSCULAR VOLUME 88.5 fL (80.0-94.0); MEAN PLATELET VOLUME 11.1 fL (7.4-11.4); MONOCYTES # (AUTO) 0.4 10^3/uL (0.0-1.0); MONOCYTES % (AUTO) 4.2 %; NEUTROPHILS # (AUTO) 6.4 10^3/uL (1.5-6.6); NEUTROPHILS % (AUTO) 73.9 %; PLT - PLATELET COUNT 239 10^3/uL (130-450); RED BLOOD COUNT 4.61 10^6/uL (4.70-6.10); RED CELL DISTRIBUTION WIDTH 14.6 % (12.0-15.0); WHITE BLOOD COUNT 8.6 x10^3/uL (4.8-10.8)
[2020-01-09 13:30] LABS: ALBUMIN 4.4 g/dL (3.2-5.5); ALBUMIN/GLOBULIN RATIO 1.7 (1.0-2.2); BILIRUBIN,TOTAL 0.9 mg/dL (0.2-1.0); CALCIUM 9.5 mg/dL (8.5-10.3); MAGNESIUM 1.9 mg/dL (1.7-2.8)
--- NOTE | 2020-01-09 14:28 | CT Report ---
PROCEDURE: ANGIO NECK W INDICATIONS: L sided facial droop, L neck pain CONTRAST: IV CONTRAST: Optiray 320 ml: 80 PO CONTRAST: *NO PO CONTRAST TECHNIQUE: After the administration of intravenous contrast, 1.5 mm axial sections acquired from the aortic arch to the [place] of [place]. Coronal 3-D maximum intensity projection (MIP) and/or volume rendering ref ormats were then performed. For radiation dose reduction, the following was used: automated exposur e control, adjustment of mA and/or kV according to patient size. COMPARISON: None. FINDINGS: Image quality: Excellent. Carotid system: The great vessels demonstrate a conventional anatomy as they arise from the aortic a rch. The origins of the common carotid arteries appear patent. The common carotid arteries demonstr ate normal calibers and courses. The bifurcation regions appear normal bilaterally. There is a 50% o rigin stenosis of the proximal right internal carotid artery. There is mild nonflow-limiting calcifie d stenosis involving the proximal left internal carotid artery. Posterior circulation: The origins of the vertebral arteries appear patent. The more superior porti ons of the vertebral arteries demonstrate normal course and caliber. They join to form a normal appe aring basilar artery. Soft tissues: Visualized neck soft tissues demonstrate no suspicious abnormalities. The thyroid gla nd is normal in size. Bones: No suspicious bony lesions. Visualized cervical spine appears normally aligned. IMPRESSION: There is a stenosis of the proximal right internal carotid artery measuring approximately 50%. There is a mild less than 50% stenosis of the proximal left internal carotid artery. No other significant f indings noted. Above discussed with CASIMIRO RHOADES at the time of dictation on 01.09.20 at 1424 hours PDT. The estimate of stenosis included in the report of the imaging study was calculated using the NASCET method Reviewed by: Eric Peraza MD on 01/09/2020 1:26 PM AKDT Approved by: Eric Peraza MD on 01/09/2020 1:26 PM AKDT Station ID: [id number]
--- NOTE | 2020-01-09 14:28 | CT Report ---
PROCEDURE: ANGIO HEAD W/WO INDICATIONS: L sided facial droop CONTRAST: IV CONTRAST: Optiray 320 ml: 80 PO CONTRAST: *NO PO CONTRAST TECHNIQUE: Precontrast 4.5 mm thick angled axial sections acquired from the foramen magnum to the vertex. Afte r the administration of intravenous contrast, 1 mm thick sections acquired through the [place] of [place] is. Postcontrast 4.5 mm thick sections then re-acquired from the foramen magnum to the vertex. 3-di mensional zhjhmzi-abrrouzua-oaxlojpbvu (MIP) and/or volume rendering reformats were acquired of the c entral intracranial vasculature. For radiation dose reduction, the following was used: automated ex posure control, adjustment of mA and/or kV according to patient size. COMPARISON: CT head dated 03/20/2018 FINDINGS: Image quality: Excellent. Anterior circulation: Intracranial internal carotid arteries are normal in size and flow. The flow within the paired anterior cerebral arteries is normal and symmetric. The flow within the middle cer ebral arteries is normal and symmetric. The anterior communicating artery is seen. No aneurysms are seen. Posterior circulation: Visualized portions of the vertebral arteries demonstrate normal caliber, and join to form a normal appearing basilar artery. Flow within the posterior cerebral arteries is soham l and symmetric. No aneurysms are seen. CSF spaces: Ventricles are normal in size and shape. Basal cisterns are patent. No extra-axial flu id collections. Brain: No midline shift. No intracranial bleeds or masses. Venegas-white matter interface appears int act. Age-related volume loss and mild small vessel ischemic change. Cavernous carotid atheroscleroti c calcifications, distal left vertebral artery atherosclerotic calcifications. Skull and face: Calvarium and facial bones appear intact, without suspicious lesions. Sinuses: Visualized sinuses and mastoids are clear. IMPRESSION: 1. Age-related volume loss and mild small vessel ischemic change. 2. No evidence acute stroke, hemorrhage, or mass. 3. Unremarkable CTA head. No stenosis, occlusion, aneurysm, or filling defects seen. Above discussed with CASIMIRO RHOADES at the time of dictation on 01.09.20 at 1424 hours PDT.. Reviewed by: Eric Peraza MD on 01/09/2020 1:26 PM AKDT Approved by: Eric Peraza MD on 01/09/2020 1:26 PM AKDT Station ID: [id number]
== END 2020-01-09 15:21 | disposition home or self-care (01) ==
LOC: ED 11:49
DX: H83.09 Labyrinthitis, unspecified ear (principal); H81.10 Benign paroxysmal vertigo, unspecified ear; E11.9 Type 2 diabetes mellitus without complications; Z79.84 Long term (current) use of oral hypoglycemic drugs
CPT/HCPCS: 36415; 70496; 70498; 80053; 82607; 83690; 83735; 85025; 85651; 93005; 99284; A9270; Q9967

== ENCOUNTER 2020-01-13 07:35 | Outpatient (CLI) | payer MEDICARE, OTHER ==
[2020-01-13 12:00] LABS: BUN - BLOOD UREA NITROGEN 35 mg/dL (6-20); CALCIUM 9.6 mg/dL (8.5-10.3); CARBON DIOXIDE - CO2 25 mmol/L (21-32); CHLORIDE 103 mmol/L (101-111); CHOL/HDL RATIO 6.6 (<5.0); CHOLESTEROL 328 mg/dL; CREATININE 1.2 mg/dL (0.6-1.2); GLUCOSE 146 mg/dL (70-100); HDL CHOLESTEROL 50 mg/dL; LDL CHOLESTEROL,CALCULATED 229 mg/dL; LDL/HDL RATIO 4.6 (<3.6); SODIUM 138 mmol/L (135-145); VLDL CHOLESTEROL 49 mg/dL
[2020-01-13 12:01] LABS: HB2 TOTAL 14.5 g/dL; HEMOGLOBIN A1C 0.77 g/dL
== END 2020-01-13 23:59 | disposition home or self-care (01) ==
LOC: LAB.WCP 07:35
PROVIDERS: ATTEND Family Medicine
DX: M60.9 Myositis, unspecified (principal); E11.9 Type 2 diabetes mellitus without complications; Z12.5 Encounter for screening for malignant neoplasm of prostate; I10 Essential (primary) hypertension; I63.9 Cerebral infarction, unspecified
CPT/HCPCS: 36415; 80048; 80061; 83036; 84443; G0103; 83721; 84153

== ENCOUNTER 2020-03-20 07:18 | Emergency (ER) | payer MEDICARE, OTHER ==
--- NOTE | 2020-03-20 07:23 | ED Physician Documentation ---
PD HPI UPPER EXT INJURY - Stated complaint Stated Complaint: L HAND PX/SWELLING - History obtained from History obtained from: Patient - History of Present Illness Location: Left, Hand Type of injury: Other (Believes he had a spider bite. He awoke from sleep with redness and tenderness in the dorsum of the left hand. He did see a spider nearby the bed. No other apparent injury. No history of gout or local wound.) Where injury occurred: Home Timing - onset: Yesterday Timing - details: Gradual onset, Still present (much worse pain and swelling today.) Improved by: Rest. No: Meds (Ibuprofen and Benadryl) Worsened by: Moving, Palpating Associated symptoms: Swelling, Discolored (redness). No: Weakness, Numbness Similar symptoms before: Has not had sx before Recently seen: Not recently seen Review of Systems Constitutional: denies: Fever, Chills Cardiac: denies: Chest pain / pressure Respiratory: denies: Dyspnea, Cough GI: denies: Nausea, Vomiting PD PAST MEDICAL HISTORY - Past Medical History Cardiovascular: High cholesterol Respiratory: None Endocrine/Autoimmune: Type 2 diabetes GI: GERD : None HEENT: None Psych: Depression Musculoskeletal: None Derm: Eczema - Past Surgical History Past Surgical History: No - Present Medications Home Medications: Ambulatory Orders Medication Instructions Recorded Confirmed Metformin HCl 1,000 mg PO BID 04/15/14 01/09/20 Glimepiride 1 mg PO BID 07/30/16 01/09/20 Meloxicam 1 tab PO DAILY 03/20/18 01/09/20 Omeprazole 20 mg PO DAILY 12/09/18 01/09/20 Meclizine HCl [Motion Sickness 25 mg PO Q6H PRN #25 tablet 01/09/20 Relief] Cephalexin [Keflex] 500 mg PO Q6H #20 capsule 03/20/20 Hydrocodone/Acetaminophen 1 each PO Q6H PRN #15 tablet 03/20/20 [Hydrocodone-Acetamin 5-325 mg] dexAMETHasone [Decadron] 4 mg PO DAILY #5 tablet 03/20/20 - Allergies Allergies/Adverse Reactions: Allergies Allergy/AdvReac Type Severity Reaction Status Date / Time levofloxacin [From Levaquin] AdvReac Anxiety Verified 03/20/20 07:31 - Social History Does the pt smoke?: No Smoking Status: Never smoker Does the pt drink ETOH?: Yes Does the pt have substance abuse?: No - POLST Patient has POLST: No PD ED PE NORMAL - Vitals Vital signs reviewed: Yes - General General: Alert and oriented X 3, No acute distress, Well developed/nourished - Derm Derm: Normal color, Warm and dry - Extremities Extremities: Other (Dorsum of the left hand shows an area of redness tenderness and firmness over the third MC head area. No localized fluctuance nor pointing. No obvious skin lesions. The redness and tenderness extends over the dorsum of the hand and proximal dorsal fingers as well.) - Neuro Neuro: No motor deficit, No sensory deficit, Other (His pain with range of motion of the index and middle fingers primarily. No pain into the forearm. No redness tenderness or swelling in the wrist or forearm.) Results - Vitals Vitals: Vital Signs - 24 hr 03/20/20 07:28 Temperature 36.1 C L Heart Rate 88 Respiratory 20 Rate Blood Pressure 163/68 H O2 Saturation 99 Oxygen O2 Source Room air PD MEDICAL DECISION MAKING - ED course Complexity details: considered differential (Venom effect with local reaction versus cellulitis appearance or gout.), d/w patient Departure - Departure Disposition: 01 Home, Self Care Clinical Impression: Swelling of left hand Spider bite Qualifiers: Encounter type: initial encounter Injury intent: accidental or unintentional Qualified Code(s): T63.301A - Toxic effect of unspecified spider venom, accidental (unintentional), initial encounter Condition: Stable Record reviewed to determine appropriate education?: Yes Instructions: ED Bite Insect Brown Recluse Spider Follow-Up: Fredi Asif MD [Primary Care Provider] - Prescriptions: dexAMETHasone [Decadron] 4 mg PO DAILY #5 tablet Hydrocodone/Acetaminophen [Hydrocodone-Acetamin 5-325 mg] 1 each PO Q6H PRN #15 tablet PRN Reason: Pain Cephalexin [Keflex] 500 mg PO Q6H #20 capsule Comments: The reaction to the spider bite venom should peak within 2 to 3 days. We can decrease the response with anti-inflammatories (NSAIDs and steroids) as well as decreased motion and local treatment with ice or cool towels. Of concern would be alternate causes such as infection and so add cephalexin antibiotic as well. Other considerations such as gout would be covered with the anti-inflammatory treatment anyway. Add pain medicine as needed for the pain. Tylenol 4 times a day or hydrocodone if needed for worse pain. Recheck if continues to worsen or you have generalized symptoms. Discharge Date/Time: 03/20/20 08:13
[2020-03-20 07:31] VITALS: BP 163/68
[2020-03-20] MEDS ORDERED: CHERRY SYRUP 10 ML UDC PO ONE (07:55)
[2020-03-20] MEDS ORDERED: cephALEXin 250 MG CAPSULE PO STA (07:55)
[2020-03-20] MEDS ORDERED: ACETAMINOPHEN 325 MG TABLET PO STA (07:55)
[2020-03-20] MEDS ORDERED: DEXAMETHASONE 10 MG/ML VIAL PO STA (07:55)
== END 2020-03-20 08:13 | disposition home or self-care (01) ==
LOC: ED 07:18
DX: R22.31 Localized swelling, mass and lump, right upper limb (principal); T63.301A Toxic effect of unspecified spider venom, accidental (unintentional), initial encounter; E11.9 Type 2 diabetes mellitus without complications; Z79.84 Long term (current) use of oral hypoglycemic drugs; E78.00 Pure hypercholesterolemia, unspecified
CPT/HCPCS: 99283; A9270

== ENCOUNTER 2020-03-26 07:10 | Emergency (ER) | payer MEDICARE, OTHER ==
[2020-03-26] MEDS ORDERED: CHERRY SYRUP 10 ML UDC PO ONE (07:40)
[2020-03-26] MEDS ORDERED: NAPROXEN 250 MG TABLET PO STA (07:40)
[2020-03-26] MEDS ORDERED: DOXYCYCLINE 100 MG TABLET PO STA (07:40)
[2020-03-26] MEDS ORDERED: DEXAMETHASONE 10 MG/ML VIAL PO STA (07:40)
--- NOTE | 2020-03-26 08:00 | ED Physician Documentation ---
PD HPI SKIN - Stated complaint Stated Complaint: SPIDER BITE - Chief complaint Chief Complaint: General - History obtained from History obtained from: Patient - History of Present Illness Timing - onset: How many days ago (8) Timing - duration: Days (had redness and swelling of hand presumed spider bite, and seen here 6 days ago. Rx decadron, Keflex, and pain meds for possible cellulitis vs gout vs invenomation. He states moderately better with meds but then worsening again since yesterday, done all meds yesterday.) Timing - details: Gradual onset, Still present, Waxing and waning Location: LUE (back of hand) Quality / character: Painful, Discolored (red), Swelling, Other (no ulcerative nor vesicular lesions.) Associated symptoms: No: Fever, N/V/D Recently seen: Emergency Dept Review of Systems Constitutional: denies: Fever, Chills, Myalgias Skin: denies: Lesions Neurologic: denies: Focal weakness, Numbness PD PAST MEDICAL HISTORY - Past Medical History Past Medical History: Yes Cardiovascular: High cholesterol Respiratory: None Neuro: None Endocrine/Autoimmune: Type 2 diabetes GI: GERD : None HEENT: None Psych: Depression Musculoskeletal: None Derm: Eczema - Past Surgical History Past Surgical History: No - Present Medications Home Medications: Ambulatory Orders Medication Instructions Recorded Confirmed Metformin HCl 1,000 mg PO BID 04/15/14 01/09/20 Glimepiride 1 mg PO BID 07/30/16 01/09/20 Meloxicam 1 tab PO DAILY 03/20/18 01/09/20 Omeprazole 20 mg PO DAILY 12/09/18 01/09/20 Meclizine HCl [Motion Sickness 25 mg PO Q6H PRN #25 tablet 01/09/20 Relief] Cephalexin [Keflex] 500 mg PO Q6H #20 capsule 03/20/20 Hydrocodone/Acetaminophen 1 each PO Q6H PRN #15 tablet 03/20/20 [Hydrocodone-Acetamin 5-325 mg] dexAMETHasone [Decadron] 4 mg PO DAILY #5 tablet 03/20/20 Doxycycline Monohydrate 100 mg PO BID #14 tablet 03/26/20 Hydrocodone/Acetaminophen 1 each PO Q6H PRN #15 tablet 03/26/20 [Hydrocodone-Acetamin 5-325 mg] Naproxen 500 mg PO TID #25 tablet 03/26/20 - Allergies Allergies/Adverse Reactions: Allergies Allergy/AdvReac Type Severity Reaction Status Date / Time levofloxacin [From Levaquin] AdvReac Anxiety Verified 03/26/20 07:22 - Social History Does the pt smoke?: No Smoking Status: Never smoker Does the pt drink ETOH?: Yes Does the pt have substance abuse?: No - POLST Patient has POLST: No PD ED PE NORMAL - Vitals Vital signs reviewed: Yes - General General: Alert and oriented X 3, No acute distress, Well developed/nourished - Derm Derm: Warm and dry, Other (dorsum left hand with similar finding to 6 days ago with redness, swelling, very tender. No breaks in skin, nor any blisters/bruising. Redness to wrist and up to proximal dorsal fingers. No pain with extension fingers, but feels stiff per pt. ). No: Normal color - Neuro Neuro: Alert and oriented X 3, No motor deficit, No sensory deficit Results - Vitals Vitals: Vital Signs - 24 hr 03/26/20 03/26/20 07:18 08:17 Temperature 36.7 C 37.1 C Heart Rate 68 70 Respiratory 16 16 Rate Blood Pressure 147/85 H 142/78 H O2 Saturation 100 99 Oxygen O2 Source Room air PD MEDICAL DECISION MAKING - ED course Complexity details: considered differential (still not sure the cause, with envenomation being possible but not as clear. Very tender more like gout. Has not extended proximally), d/w patient Departure - Departure Disposition: 01 Home, Self Care Clinical Impression: Swelling of left hand Spider bite Qualifiers: Encounter type: subsequent encounter Injury intent: undetermined intent Bebo lified Code(s): T63.304D - Toxic effect of unspecified spider venom, undetermined, subsequent encounter Condition: Stable Record reviewed to determine appropriate education?: Yes Follow-Up: Fredi Asif MD [Primary Care Provider] - Prescriptions: Doxycycline Monohydrate 100 mg PO BID #14 tablet Hydrocodone/Acetaminophen [Hydrocodone-Acetamin 5-325 mg] 1 each PO Q6H PRN #15 tablet PRN Reason: Pain Naproxen 500 mg PO TID #25 tablet Comments: The effect of the venom from a spider bite should be decreasing steadily even though it may still persist at this point. With increasing pain and persistent and redness and swelling, consider alternatives of inflammatory conditions or skin infection. We can try a different antibiotic and anti-inflammatory from last time and continue more pain medicine. See how you do over the next several days and see if it is resolved then over the next 3 to 5 days. Discharge Date/Time: 03/26/20 08:18
[2020-03-26 08:18] VITALS: BP 142/78
== END 2020-03-26 08:18 | disposition home or self-care (01) ==
LOC: ED 07:10
DX: T63.301A Toxic effect of unspecified spider venom, accidental (unintentional), initial encounter (principal); M79.89 Other specified soft tissue disorders; E11.9 Type 2 diabetes mellitus without complications; Z79.84 Long term (current) use of oral hypoglycemic drugs
CPT/HCPCS: 99283; A9270

== ENCOUNTER 2020-03-31 06:59 | Emergency (ER) | payer MEDICARE, OTHER ==
[2020-03-31] MEDS ORDERED: BUFFERED LIDOCAINE 10 ML SYRINGE SUBQ STA (08:27)
--- NOTE | 2020-03-31 08:48 | ED Physician Documentation ---
History of Present Illness - Stated complaint Stated Complaint: LT HAND SWELLING - Chief complaint Chief Complaint: Wound - History obtained from History obtained from: Patient - History of Present Illness Timing: How many weeks ago (2) - Additonal information Additional information: 69-year-old male was bit by a hobo spider 2 weeks ago in his home. He had some swelling to the dorsum of the left hand which has improved. He was placed on a course of antibiotic and he returned with persistent swelling and was placed on a second course of antibiotic as well. He is finished those antibiotics and has persistent swelling to the dorsum of the hand as well as increased pain. He is worried about blood poisoning and infection. He is able to use the hand but with increased pain. No fever. Review of Systems Constitutional: denies: Fever Eyes: denies: Decreased vision Ears: denies: Ear pain Nose: denies: Rhinorrhea / runny nose, Congestion Throat: denies: Sore throat Cardiac: denies: Chest pain / pressure, Palpitations Respiratory: denies: Dyspnea, Cough GI: denies: Abdominal Pain, Nausea, Vomiting : denies: Dysuria, Frequency Skin: denies: Rash Musculoskeletal: reports: Extremity pain, Extremity swelling. denies: Neck pain, Back pain Neurologic: denies: Generalized weakness, Focal weakness, Numbness PD PAST MEDICAL HISTORY - Past Medical History Cardiovascular: High cholesterol Respiratory: None Neuro: None Endocrine/Autoimmune: Type 2 diabetes GI: GERD : None HEENT: None Psych: Depression Musculoskeletal: None Derm: Eczema - Past Surgical History Past Surgical History: No - Present Medications Home Medications: Ambulatory Orders Medication Instructions Recorded Confirmed Metformin HCl 1,000 mg PO BID 04/15/14 01/09/20 Glimepiride 1 mg PO BID 07/30/16 01/09/20 Meloxicam 1 tab PO DAILY 03/20/18 01/09/20 Omeprazole 20 mg PO DAILY 12/09/18 01/09/20 Meclizine HCl [Motion Sickness 25 mg PO Q6H PRN #25 tablet 01/09/20 Relief] Cephalexin [Keflex] 500 mg PO Q6H #20 capsule 03/20/20 Hydrocodone/Acetaminophen 1 each PO Q6H PRN #15 tablet 03/20/20 [Hydrocodone-Acetamin 5-325 mg] dexAMETHasone [Decadron] 4 mg PO DAILY #5 tablet 03/20/20 Doxycycline Monohydrate 100 mg PO BID #14 tablet 03/26/20 Hydrocodone/Acetaminophen 1 each PO Q6H PRN #15 tablet 03/26/20 [Hydrocodone-Acetamin 5-325 mg] Naproxen 500 mg PO TID #25 tablet 03/26/20 - Allergies Allergies/Adverse Reactions: Allergies Allergy/AdvReac Type Severity Reaction Status Date / Time levofloxacin [From Levaquin] AdvReac Anxiety Verified 03/31/20 07:08 - Social History Does the pt smoke?: No Smoking Status: Never smoker Does the pt drink ETOH?: Yes Does the pt have substance abuse?: No - POLST Patient has POLST: No PD ED PE NORMAL - Vitals Vital signs reviewed: Yes (hypertensive ) - General General: Alert and oriented X 3, No acute distress, Well developed/nourished - HEENT HEENT: Atraumatic, PERRL, EOMI - Respiratory Respiratory: No respiratory distress - Derm Derm: Normal color, Warm and dry, No rash - Extremities Extremities: No deformity, Other (There is swelling and tenderness and erythema to the dorsum of the left hand over the third metacarpal. There is some f luctuance to the area and on bedside ultrasound examination there is the appearance of fluid surrounding the tendon. The fluid is compressible. He is able to flex and extend. ) - Neuro Neuro: Alert and oriented X 3, courtroom deputy or calendar clerk 2-12 intact, No motor deficit, No sensory deficit, Normal speech Eye Opening: Spontaneous Motor: Obeys Commands Verbal: Oriented GCS Score: 15 - Psych Psych: Normal mood, Normal affect Results - Vitals Vitals: Vital Signs - 24 hr 03/31/20 03/31/20 07:06 09:08 Temperature 36.8 C 36.6 C Heart Rate 86 88 Respiratory 18 16 Rate Blood Pressure 176/83 H 160/80 H O2 Saturation 99 100 Oxygen O2 Source Room air - Labs Labs: Laboratory Tests 03/31/20 08:25 Fluid Crystals NONE SEEN PD MEDICAL DECISION MAKING - ED course Complexity details: reviewed old records, reviewed results, re-evaluated patient, considered differential, d/w patient ED course: 69-year-old male with a spider bite to the left hand appears to have some inflammation along the tendon itself. Fluid is obtained from this area and will be cultured. Fluid is sent for Gram stain and crystals as well. Departure - Departure Disposition: 01 Home, Self Care Clinical Impression: Swelling of left hand Condition: Stable Instructions: ED Bite Insect Brown Recluse Spider Follow-Up: Fredi sAif MD [Primary Care Provider] - [facility] [Provider Group]
[2020-03-31 09:19] VITALS: BP 160/80
== END 2020-03-31 09:37 | disposition home or self-care (01) ==
LOC: ED 06:59
DX: T63.391A Toxic effect of venom of other spider, accidental (unintentional), initial encounter (principal); M79.642 Pain in left hand; M79.89 Other specified soft tissue disorders; Y92.009 Unspecified place in unspecified non-institutional (private) residence as the place of occurrence of the external cause; E11.9 Type 2 diabetes mellitus without complications; Z79.84 Long term (current) use of oral hypoglycemic drugs
CPT/HCPCS: 87070; 87205; 89051; 89060; 99282; 99283

== ENCOUNTER 2020-06-09 11:17 | Emergency (ER) | payer MEDICARE, OTHER ==
[2020-06-09 12:01] LABS: BILIRUBIN,URINE NEGATIVE (NEGATIVE); GLUCOSE, URINE (UA) NEGATIVE (NEGATIVE); KETONES,URINE (UA) NEGATIVE (NEGATIVE); LEUKOCYTE ESTERASE, URINE NEGATIVE (NEGATIVE); NITRITE,URINE NEGATIVE (NEGATIVE); OCCULT BLOOD,URINE NEGATIVE (NEGATIVE); PH,URINE 5.5 PH (5.0-7.5); PROTEIN,URINE NEGATIVE (NEGATIVE); UROBILINOGEN,URINE 0.2 (NORMAL) E.U./dL (NORMAL)
[2020-06-09 12:04] LABS: CLARITY,URINE CLEAR (CLEAR)
[2020-06-09] MEDS ORDERED: DEXAMETHASONE 10 MG/ML VIAL PO STA (12:14)
[2020-06-09] MEDS ORDERED: KETOROLAC 60 MG/2 ML VIAL IM STA (12:14)
[2020-06-09] MEDS ORDERED: CHERRY SYRUP 10 ML UDC PO ONE (12:14)
[2020-06-09 12:40] VITALS: BP 138/87
--- NOTE | 2020-06-09 12:42 | ED Physician Documentation ---
History of Present Illness - Stated complaint Stated Complaint: BACK PX - Chief complaint Chief Complaint: Abd Pain - History obtained from History obtained from: Patient - History of Present Illness Pain level max: 0 Pain level now: 0 - Additonal information Additional information: 69-year-old male presents to the emergency department with ongoing back pain for the past week or so. Worse with standing, better with bending over such as pushing a shopping cart. Nonradiating. No loss of bowel or bladder control. No numbness or tingling. No trauma. No fevers. Has not taken anything for the pain today Review of Systems Constitutional: denies: Fever, Chills Respiratory: denies: Cough GI: denies: Nausea, Vomiting, Diarrhea Skin: denies: Rash Musculoskeletal: denies: Neck pain Neurologic: denies: Focal weakness, Numbness, Headache PD PAST MEDICAL HISTORY - Past Medical History Past Medical History: Yes Cardiovascular: High cholesterol Respiratory: None Neuro: None Endocrine/Autoimmune: Type 2 diabetes GI: GERD : None HEENT: None Psych: Depression Musculoskeletal: None Derm: Eczema - Past Surgical History Past Surgical History: No Ortho: Arthroscopic surgery - Present Medications Home Medications: Ambulatory Orders Medication Instructions Recorded Confirmed Metformin HCl 1,000 mg PO BID 04/15/14 01/09/20 Glimepiride 1 mg PO BID 07/30/16 01/09/20 Omeprazole 20 mg PO DAILY 12/09/18 01/09/20 dexAMETHasone [Decadron] 4 mg PO DAILY #5 tablet 03/20/20 Aspirin [Aspirin EC] 06/09/20 Finasteride [Proscar] 06/09/20 06/09/20 Meloxicam [Mobic] 7.5 mg PO BID PRN #20 tablet 06/09/20 Methylprednisolone [Medrol] 4 mg PO DAILY #1 tab.ds.pk 06/09/20 PredniSONE [PredniSONE INTENSOL] 06/09/20 Rosuvastatin Calcium [Crestor] 06/09/20 06/09/20 - Allergies Allergies/Adverse Reactions: Allergies Allergy/AdvReac Type Severity Reaction Status Date / Time levofloxacin [From Levaquin] AdvReac Anxiety Verified 06/09/20 11:25 - Social History Does the pt smoke?: No Smoking Status: Never smoker Does the pt drink ETOH?: Yes ETOH Use: Beer Does the pt have substance abuse?: No Substance Use and Type: CBD oil / Products - Immunizations Immunizations are current?: Yes - POLST Patient has POLST: No PD ED PE NORMAL - Vitals Vital signs reviewed: Yes - General General: Alert and oriented X 3, No acute distress - HEENT HEENT: Moist mucous membranes - Neck Neck: Supple, no meningeal sign - Cardiac Cardiac: RRR - Respiratory Respiratory: No respiratory distress, Clear bilaterally - Abdomen Abdomen: Soft, Non tender, Non distended - Back Back: No spinal TTP (No midline tenderness to palpation or percussion.) - Derm Derm: Warm and dry - Extremities Extremities: Other (Normal bilateral lower extremity patellar and ankle jerk reflexes. Normal great toe extension bilaterally. no saddle anesthesia) - Neuro Neuro: Alert and oriented X 3 - Psych Psych: Normal mood, Normal affect Results - Vitals Vitals: Vital Signs - 24 hr 06/09/20 06/09/20 06/09/20 11:23 11:38 12:39 Temperature 36.0 C L 36.9 C Heart Rate 78 76 85 Respiratory 16 16 16 Rate Blood Pressure 139/77 H 152/75 H 138/87 H O2 Saturation 96 99 100 Oxygen O2 Source Room air - Labs Labs: Laboratory Tests 06/09/20 11:40 Urine Color YELLOW Urine Clarity CLEAR Urine pH 5.5 Ur Specific [place] >=1.030 H Urine Protein NEGATIVE Urine Glucose (UA) NEGATIVE Urine Ketones NEGATIVE Urine Occult Blood NEGATIVE Urine Nitrite NEGATIVE Urine Bilirubin NEGATIVE Urine Urobilinogen 0.2 (NORMAL) Ur Leukocyte Esterase NEGATIVE Ur Microscopic Review NOT INDICATED Urine Culture Comments NOT INDICATED PD MEDICAL DECISION MAKING - ED course Complexity details: reviewed results, re-evaluated patient, considered differential (No cauda equina, no spinal epidural abscess, no fracture, no aortic dissection or evidence of aneursym rupture), d/w patient ED course: 69-year-old male with what appears to be spinal stenosis. Feels better when opening up the foramen by bending forward. We will trial him on steroids and anti-inflammatories. No evidence of cauda equina, epidural abscess, fracture. Patient counseled regarding signs and symptoms for which I believe and urgent re-evaluation would be necessary. Patient with good understanding of and agreement to plan and is comfortable going home at this time This document was made in part using voice recognition software. While efforts are made to proofread this document, sound alike and grammatical errors may occur. Departure - Departure Disposition: 01 Home, Self Care Clinical Impression: Spinal stenosis Qualifiers: Spinal region: unspecified Qualified Code(s): M48.00 - Spinal stenosis, site unspecified Condition: Good Instructions: ED Neck Back Pain General Follow-Up: Fredi Asif MD [Primary Care Provider] - Within 1 week Prescriptions: Methylprednisolone [Medrol] 4 mg PO DAILY #1 tab.ds.pk Meloxicam [Mobic] 7.5 mg PO BID PRN #20 tablet PRN Reason: Pain Comments: Use the medications as prescribed. Follow-up with your doctor for further care. You appear to have spinal stenosis today. Your doctor may want to perform an MRI to confirm. Discharge Date/Time: 06/09/20 12:54
== END 2020-06-09 12:54 | disposition home or self-care (01) ==
LOC: ED 11:17
DX: M48.00 Spinal stenosis, site unspecified (principal); E11.9 Type 2 diabetes mellitus without complications; Z79.84 Long term (current) use of oral hypoglycemic drugs
CPT/HCPCS: 81003; 96372; 99283; 99284; A9270; 81001; 87086

== ENCOUNTER 2020-06-15 08:17 | Outpatient (CLI) | payer MEDICARE, OTHER ==
[2020-06-15 09:29] LABS: BUN - BLOOD UREA NITROGEN 24 mg/dL (6-20); CARBON DIOXIDE - CO2 26 mmol/L (21-32); CHLORIDE 99 mmol/L (101-111); CHOL/HDL RATIO 2.9 (<5.0); CHOLESTEROL 252 mg/dL; CREATININE 0.9 mg/dL (0.6-1.2); GLUCOSE 148 mg/dL (70-100); HDL CHOLESTEROL 87 mg/dL; LDL CHOLESTEROL,CALCULATED 136 mg/dL; LDL/HDL RATIO 1.6 (<3.6); SODIUM 139 mmol/L (135-145); VLDL CHOLESTEROL 29 mg/dL
[2020-06-15 13:55] LABS: HEMOGLOBIN A1c% 7.5 % (4.27-6.07)
== END 2020-06-15 08:18 | disposition home or self-care (01) ==
LOC: LAB 08:17
PROVIDERS: ATTEND Family Medicine
DX: E66.3 Overweight (principal); E11.9 Type 2 diabetes mellitus without complications; E78.5 Hyperlipidemia, unspecified; I10 Essential (primary) hypertension; I63.9 Cerebral infarction, unspecified
CPT/HCPCS: 36415; 80048; 80061; 83036; 83721

== ENCOUNTER 2020-10-20 08:59 | Outpatient (CLI) | payer MEDICARE, OTHER ==
--- NOTE | 2020-10-25 15:04 | XRAY Report ---
PROCEDURE: Foot 3 View RT INDICATIONS: CHRONIC PAIN FOREFOOT R FOOT TECHNIQUE: 3 views of the foot were acquired. COMPARISON: None FINDINGS: Bones: No fractures or dislocations. No suspicious bony lesions. Small plantar calcaneal spur noted . Soft tissues: No tibiotalar joint effusion. Achilles tendon appears normal. IMPRESSION: Small plantar calcaneal spur. Otherwise unremarkable right foot radiographs Reviewed by: Keyon Cardenas MD on 10/20/2020 10:00 AM PDT Approved by: Keyon Cardenas MD on 10/20/2020 10:00 AM PDT Station ID: [id number]
== END 2020-10-20 09:00 | disposition home or self-care (01) ==
LOC: DI 08:59
PROVIDERS: ATTEND Podiatrist
DX: M77.31 Calcaneal spur, right foot (principal)

== ENCOUNTER 2020-10-20 17:01 | Emergency (ER) | payer MEDICARE, OTHER ==
--- NOTE | 2020-10-20 18:13 | ED Physician Documentation ---
History of Present Illness - Stated complaint Stated Complaint: R BACK PX - Chief complaint Chief Complaint: Abd Pain - Additonal information Additional information: 70-year-old male presents to the emergency department for evaluation of acute onset right CVA tenderness that kept him awake at last night however is also associated with some vomiting. He is concerned that he may have renal colic. Denies any history of similar. No pertinent past surgical histories. He denies dysuria but endorses a history of frequency and urgency. He does take finasteride. He is also a diabetic on glimepiride as well as Metformin. Non- smoker no alcohol use. Review of Systems Constitutional: denies: Fever, Chills Eyes: reports: Reviewed and negative Ears: reports: Reviewed and negative Nose: reports: Reviewed and negative Throat: reports: Reviewed and negative Cardiac: reports: Reviewed and negative Respiratory: reports: Reviewed and negative GI: reports: Abdominal Pain, Nausea, Vomiting : reports: Frequency. denies: Dysuria Skin: reports: Reviewed and negative Musculoskeletal: reports: Reviewed and negative Neurologic: reports: Reviewed and negative PD PAST MEDICAL HISTORY - Past Medical History Cardiovascular: High cholesterol Respiratory: None Neuro: None Endocrine/Autoimmune: Type 2 diabetes GI: GERD : None HEENT: None Psych: Depression Musculoskeletal: None Derm: Eczema - Past Surgical History Past Surgical History: No Ortho: Arthroscopic surgery - Present Medications Home Medications: Ambulatory Orders Medication Instructions Recorded Confirmed Metformin HCl 1,000 mg PO BID 04/15/14 01/09/20 Glimepiride 1 mg PO BID 07/30/16 01/09/20 Omeprazole 20 mg PO DAILY 12/09/18 01/09/20 dexAMETHasone [Decadron] 4 mg PO DAILY #5 tablet 03/20/20 Aspirin [Aspirin EC] 06/09/20 Finasteride [Proscar] 06/09/20 06/09/20 Meloxicam [Mobic] 7.5 mg PO BID PRN #20 tablet 06/09/20 Methylprednisolone [Medrol] 4 mg PO DAILY #1 tab.ds.pk 06/09/20 PredniSONE [PredniSONE INTENSOL] 06/09/20 Rosuvastatin Calcium [Crestor] 06/09/20 06/09/20 HYDROcod/ACETAM 5/325 [[place] 5/325] 1 - 2 tablet PO Q6H PRN #10 tablet 10/20/20 - Allergies Allergies/Adverse Reactions: Allergies Allergy/AdvReac Type Severity Reaction Status Date / Time levofloxacin [From Levaquin] AdvReac Anxiety Verified 10/20/20 17:18 - Social History Does the pt smoke?: No Smoking Status: Never smoker Does the pt drink ETOH?: Yes Does the pt have substance abuse?: No - Immunizations Immunizations are current?: Yes - POLST Patient has POLST: No PD ED PE EXPANDED - General General: Alert, No acute distress - Cardiac Cardiac: Regular Rate, Murmur Present, Radial strong equal, Pedal strong equal, Cap refill < 2 sec - Respiratory Respiratory: Clear to ausultation dorita. No: Distress, Labored - Abdomen Abdomen: Normal Bowel sounds (Mild tenderness palpation right CVA area without guarding or rebound. No right lower quadrant or upper quadrant tenderness.), Tender to palpation - Derm Derm: Normal color, Warm and dry - Extremities Extremities: Normal. No: Deformity, Tenderness - Neuro Neuro: Alert and Oriented X 3, CNII-XII intact - GCS Eye Opening: Spontaneous Motor: Obeys Commands Verbal: Oriented Total: 15 Results - Vitals Vitals: Vital Signs - 24 hr 10/20/20 10/20/20 10/20/20 17:18 20:50 20:53 Temperature 36.8 C Heart Rate 79 66 Respiratory 18 16 15 Rate Blood Pressure 100/80 145/73 H O2 Saturation 97 99 Oxygen O2 Source Room air - Labs Labs: Laboratory Tests 10/20/20 10/20/20 10/20/20 17:46 18:02 18:02 WBC 6.1 RBC 4.17 L Hgb 12.4 L Hct 37.3 L MCV 89.4 MCH 29.7 MCHC 33.2 RDW 13.3 Plt Count 181 MPV 11.1 Neut # (Auto) 3.9 Lymph # (Auto) 1.5 [place] # (Auto) 0.5 Eos # (Auto) 0.3 Baso # (Auto) 0.1 Absolute Nucleated RBC 0.00 Nucleated RBC % 0.0 Sodium 137 Potassium 4.1 Chloride 105 Carbon Dioxide 21 Anion Gap 11.0 BUN 19 Creatinine 1.1 Estimated GFR (MDRD) 66 L Glucose 162 H Calcium 9.5 Total Bilirubin 0.6 AST 54 H ALT 60 Alkaline Phosphatase 71 Total Protein 7.4 Albumin 4.4 Globulin 3.0 Albumin/Globulin Ratio 1.5 Lipase 40 Urine Color YELLOW Urine Clarity CLEAR Urine pH 5.5 Ur Specific [place] >=1.030 H Urine Protein NEGATIVE Urine Glucose (UA) NEGATIVE Urine Ketones TRACE Urine Occult Blood NEGATIVE Urine Nitrite NEGATIVE Urine Bilirubin NEGATIVE Urine Urobilinogen 0.2 (NORMAL) Ur Leukocyte Esterase NEGATIVE Ur Microscopic Review NOT INDICATED Urine Culture Comments NOT INDICATED - Rads (name of study) CT abd Radiology: Final report received (No kidney stone seen. No hydronephrosis. No bowel obstruction. No free fluid normal appendix. Fat-containing left inguinal hernia.) PD MEDICAL DECISION MAKING - ED course Complexity details: reviewed results, re-evaluated patient ED course: 70-year-old male presents emergency department for acute right CVA tenderness that woke him from sleep last night. He has no chest pain or shortness of air. No hypoxia. Low suspicion for pulmonary embolus. He did report that he had kidney stones in the past and felt that this may be similar to that. Screening labs showed no acute abnormality sparing a minor LFT elevation that is not consistent with biliary colic or transaminitis. CT of the abdomen that showed no kidney stones or concerns with the gallbladder. Urine showed no signs of infection or hematuria. These findings were discussed with the patient. I did offer him an abdominal ultrasound for further differentiation but he declined. I will write a prescription for a limited amount of hydrocodone and encouraged him to follow-up with his primary care doctor. Emergent return precautions for worsening symptoms were discussed. Departure - Departure Disposition: 01 Home, Self Care Clinical Impression: Right flank pain Condition: Stable Record reviewed to determine appropriate education?: Yes Instructions: ED Abdominal Pain Unkn Cause Follow-Up: Sterling Bartlett MD [Primary Care Provider] - Prescriptions: HYDROcod/ACETAM 5/325 [[place] 5/325] 1 - 2 tablet PO Q6H PRN #10 tablet PRN Reason: Pain Comments: Sterling you were seen in the emergency department tonight for right flank pain. Your screening labs are all essentially normal. There is no blood in your urine or infection. We did do a CT of the abdomen and pelvis that did not show findings of a kidney stone or bowel obstruction. I have prescribed a limited amount of hydrocodone that you can fill to help with the pain. If your symptoms are worsening, you have fevers uncontrolled vomiting please return to the emergency department. At that time a abdominal ultrasound may be indicated. Please discuss this ED visit with your primary care doctor.
[2020-10-20 18:16] LABS: BASOPHILS # (AUTO) 0.1 10^3/uL (0.0-0.1); BASOPHILS % (AUTO) 1.1 %; EOSINOPHILS # (AUTO) 0.3 10^3/uL (0.0-0.7); EOSINOPHILS % (AUTO) 4.1 %; HCT - HEMATOCRIT 37.3 % (42.0-52.0); HGB - HEMOGLOBIN 12.4 g/dL (14.0-18.0); LYMPHOCYTES # (AUTO) 1.5 10^3/uL (1.5-3.5); LYMPHOCYTES % (AUTO) 24.3 %; MEAN CORPUSCULAR HEMOGLOBIN 29.7 pg (27.0-31.0); MEAN CORPUSCULAR HGB CONC 33.2 g/dL (32.0-36.0); MEAN CORPUSCULAR VOLUME 89.4 fL (80.0-94.0); MEAN PLATELET VOLUME 11.1 fL (7.4-11.4); MONOCYTES # (AUTO) 0.5 10^3/uL (0.0-1.0); MONOCYTES % (AUTO) 7.5 %; NEUTROPHILS # (AUTO) 3.9 10^3/uL (1.5-6.6); NEUTROPHILS % (AUTO) 62.8 %; PLT - PLATELET COUNT 181 10^3/uL (130-450); RED BLOOD COUNT 4.17 10^6/uL (4.70-6.10); RED CELL DISTRIBUTION WIDTH 13.3 % (12.0-15.0); WHITE BLOOD COUNT 6.1 x10^3/uL (4.8-10.8)
[2020-10-20 18:26] LABS: BILIRUBIN,URINE NEGATIVE (NEGATIVE); GLUCOSE, URINE (UA) NEGATIVE (NEGATIVE); KETONES,URINE (UA) TRACE mg/dL (NEGATIVE); LEUKOCYTE ESTERASE, URINE NEGATIVE (NEGATIVE); NITRITE,URINE NEGATIVE (NEGATIVE); OCCULT BLOOD,URINE NEGATIVE (NEGATIVE); PH,URINE 5.5 PH (5.0-7.5); PROTEIN,URINE NEGATIVE (NEGATIVE); UROBILINOGEN,URINE 0.2 (NORMAL) E.U./dL (NORMAL)
[2020-10-20 18:26] LABS: ALBUMIN 4.4 g/dL (3.2-5.5); ALBUMIN/GLOBULIN RATIO 1.5 (1.0-2.2); BILIRUBIN,TOTAL 0.6 mg/dL (0.2-1.0); CALCIUM 9.5 mg/dL (8.5-10.3); CREATININE 1.1 mg/dL (0.6-1.2); POTASSIUM 4.1 mmol/L (3.5-5.0); TOTAL PROTEIN 7.4 g/dL (6.7-8.2)
[2020-10-20 18:38] LABS: CLARITY,URINE CLEAR (CLEAR)
[2020-10-20] MEDS ORDERED: IOPAMIDOL-300 100 ML VIAL ONE (18:42)
[2020-10-20] MEDS ORDERED: ONDANSETRON 4 MG/2 ML VIAL IVP STA (18:53)
[2020-10-20] MEDS ORDERED: IOPAMIDOL-300 100 ML VIAL IVP ONE (20:19)
--- NOTE | 2020-10-20 20:39 | CT Report ---
PROCEDURE: Abdomen/Pelvis W INDICATIONS: CVA tenderness with vomiting on right side CONTRAST: IV CONTRAST: Isovue 300 ml: 100 PO CONTRAST: *NO PO CONTRAST TECHNIQUE: After the administration of intravenous contrast, 5 mm thick sections acquired from the diaphragms to the symphysis. 5 mm thick coronal and sagittal reformats were acquired. For radiation dose reducti on, the following was used: automated exposure control, adjustment of mA and/or kV according to celsa ent size. COMPARISON: Abdominal ultrasound 08/11/2013. FINDINGS: Image quality: Excellent. ABDOMEN: Lung bases: Mild atelectasis. No pleural effusion. Right lung base pulmonary nodule measuring 0.5 cm, (10/26). Aortic alveolar calcifications. Heart size is within normal limits. Small hiatal hernia. Solid organs: Liver is prominent in size. Suspect hepatic steatosis. Gallbladder is unremarkable. Bi liary system is non dilated. Pancreas enhances normally. Spleen is mildly prominent. No adrenal nod ules. Kidneys demonstrate normal size and enhancement, without hydronephrosis. Peritoneum and bowel: Bowel loops demonstrate normal wall thickness and caliber. Diverticulosis. No diverticulitis. Normal appendix. No free fluid or air. Nodes and vessels: No retroperitoneal or mesenteric adenopathy by size criteria. Aorta and inferior vena cava are normal in size. Circumferential calcified atherosclerotic plaque. Dense plaque in the left renal artery proximally. Miscellaneous: No ventral hernias. PELVIS: Genitourinary: Bladder wall thickness is normal. No bladder stone. Miscellaneous: Fat-containing left inguinal hernia. No adenopathy. Bones: No suspicious bony lesions. Minimal height loss at L1. Posterior disc osteophyte complex at L 5-S1. IMPRESSION: 1. No kidney stones seen. No hydronephrosis. 2. No bowel obstruction. No free fluid. Normal appendix. 3. Fat-containing left inguinal hernia. Reviewed by: Chucho Porter MD on 10/20/2020 8:37 PM PDT Approved by: Chucho Porter MD on 10/20/2020 8:37 PM PDT Station ID: [id number]
[2020-10-20 20:54] VITALS: BP 145/73
== END 2020-10-20 21:05 | disposition home or self-care (01) ==
LOC: ED 17:01
DX: R10.9 Unspecified abdominal pain (principal); E11.9 Type 2 diabetes mellitus without complications; Z79.84 Long term (current) use of oral hypoglycemic drugs; M77.31 Calcaneal spur, right foot
CPT/HCPCS: 36415; 73630; 74177; 80053; 81003; 83690; 85025; 96374; 99283; 99284; Q9967; 81001; 87086

== ENCOUNTER 2021-01-25 07:09 | Outpatient (CLI) | payer MEDICARE, OTHER ==
--- NOTE | 2021-01-25 09:44 | MRI Report ---
PROCEDURE: Knee LT W/O INDICATIONS: OSTEOARTHRITIS LEFT KNEE TECHNIQUE: Noncontrast sagittal PD fast spin echo and T2 fast spin echo with fat saturation, sagittal 3-D gradie nt sequence with fat saturation; coronal T1 spin echo and PD fast spin echo with fat saturation, and axial PD fast spin echo with fat saturation through the knee. COMPARISON: Knee radiograph dated 01/06/2020. FINDINGS: Image quality: Excellent. Menisci: The medial and lateral menisci demonstrate normal morphology and internal signal. The meni scal root ligaments appear intact. Cruciate ligaments: The anterior and posterior cruciate ligaments appear intact. Medial structures: Low-grade MCL sprain is seen. The posterior oblique ligament, semimembranosus tend on insertions, and oblique popliteal ligament, and meniscocapsular junction appear intact. Visualize d portions of the pes anserinus tendons appear normal. No abnormal bursal fluid. Lateral structures: The lateral collateral ligament, long and short heads of the biceps femoris tend on appear intact. The popliteus tendon appears normal; the popliteofibular ligament appears intact. The posterosuperior and anteroinferior popliteomeniscal fascicles appear intact. The arcuate and fa bellofibular ligaments appear intact, around the lateral inferior geniculate artery. Iliotibial band appears normal. Anterior structures: The quadriceps and patellar tendons appear intact. Patellar alignment is soham l. No femoral trochlear dysplasia or ventral trochlear prominence. No edema in the infrapatellar fa t pad. Bones and cartilage: No bone marrow contusions or fractures. Mild to moderate tricompartmental osteo arthritis and low-grade chondromalacia is seen more prominent in medial femoral tibial compartment. Joint space: There is physiologic knee joint fluid. No Gutierrez?s cyst. Normal appearing synovial pli are incidentally noted. IMPRESSION: 1. Cruciate ligaments are intact. 2. No evidence of focal meniscal tear. 3. Low-grade MCL sprain. 4. Mild to moderate tricompartmental osteoarthritis and low-grade chondromalacia more prominent in me dial femoral tibial compartment. No fracture or dislocation. Reviewed by: Gera Stevens MD on 01/25/2021 9:43 AM PDT Approved by: Gera Stevens MD on 01/25/2021 9:43 AM PDT Station ID: [id number]
== END 2021-01-25 07:10 | disposition home or self-care (01) ==
LOC: DI 07:09
PROVIDERS: ATTEND Orthopaedic Surgery
DX: S83.412A Sprain of medial collateral ligament of left knee, initial encounter (principal); M17.12 Unilateral primary osteoarthritis, left knee; M94.262 Chondromalacia, left knee

== ENCOUNTER 2021-06-20 07:36 | Outpatient (CLI) | payer MEDICARE, OTHER | END 2021-06-20 07:37 | disposition home or self-care (01) | LOC: DI 07:36 | PROVIDERS: ATTEND Internal Medicine | DX: R01.1 Cardiac murmur, unspecified (principal); R42 Dizziness and giddiness; I49.3 Ventricular premature depolarization; I51.7 Cardiomegaly; I35.0 Nonrheumatic aortic (valve) stenosis; I87.8 Other specified disorders of veins | CPT/HCPCS: 93306 ==

== ENCOUNTER 2023-05-24 03:52 | Emergency (ER) | payer MEDICARE, OTHER ==
--- NOTE | 2023-05-24 04:13 | ED Physician Documentation ---
PD HPI URI - Stated complaint Stated Complaint: COUGH/WEAK/DIZZY - Chief complaint Chief Complaint: Neuro - History obtained from History obtained from: Patient, Family - Additional information Additional information: 72-year-old male with history of [id number] diabetes, hyperlipidemia, unspecified arthritis on 10 mg daily prednisone presents by private vehicle from home for approximately 2 days of cough productive of brown sputum, as well as an episode of lightheadedness and generalized weakness while showering this morning. Patient is concerned that he may be developing pneumonia or another respiratory infection and is here for evaluation in case he needs to be started on antibiotics. Denies fevers. Review of Systems Constitutional: denies: Fever, Chills Cardiac: denies: Chest pain / pressure, Palpitations, Calf pain Respiratory: reports: Dyspnea, Cough. denies: Hemoptysis, Wheezing GI: denies: Abdominal Pain, Nausea, Vomiting, Constipation, Diarrhea : denies: Dysuria, Frequency, Hesitancy Skin: denies: Rash, Lesions, Abrasion (s), Laceration (s) PD PAST MEDICAL HISTORY - Past Medical History Past Medical History: Yes Cardiovascular: High cholesterol Respiratory: None Neuro: None Endocrine/Autoimmune: Type 2 diabetes GI: GERD : None HEENT: None Psych: Depression Musculoskeletal: None Derm: Eczema - Past Surgical History Past Surgical History: No Ortho: Arthroscopic surgery - Present Medications Home Medications: Ambulatory Orders Medication Instructions Recorded Confirmed Metformin HCl 1,000 mg PO BID 04/15/14 01/09/20 Glimepiride 1 mg PO BID 07/30/16 01/09/20 Omeprazole 20 mg PO DAILY 12/09/18 01/09/20 dexAMETHasone [Decadron] 4 mg PO DAILY #5 tablet 03/20/20 Aspirin [Aspirin EC] 06/09/20 Finasteride [Proscar] 06/09/20 06/09/20 Meloxicam [Mobic] 7.5 mg PO BID PRN #20 tablet 06/09/20 PredniSONE [PredniSONE INTENSOL] 06/09/20 Rosuvastatin Calcium [Crestor] 06/09/20 06/09/20 methylPREDNISolone [Medrol] 4 mg PO DAILY #1 tab.ds.pk 06/09/20 HYDROcod/ACETAM 5/325 [[place] 5/325] 1 - 2 tablet PO Q6H PRN #10 tablet 10/20/20 HYDROcod/ACETAM 5/325 [[place] 5/325] 1 ea PO Q6H PRN #15 tablet 05/24/23 Hydrocodone Bit/Homatrop Me-Br 5 ml PO Q6H PRN #150 ml 05/24/23 [Hycodan 5 mg-1.5 mg/5 ml Soln] - Allergies Allergies/Adverse Reactions: Allergies Allergy/AdvReac Type Severity Reaction Status Date / Time levofloxacin [From Levaquin] AdvReac Anxiety Verified 05/24/23 04:02 - Social History Does the pt smoke?: No Smoking Status: Never smoker Does the pt drink ETOH?: Yes Does the pt have substance abuse?: No - Immunizations Immunizations are current?: Yes - POLST Patient has POLST: No PD ED PE NORMAL - Vitals Vital signs reviewed: Yes - General General: Alert and oriented X 3, No acute distress, Well developed/nourished - HEENT HEENT: Atraumatic - Neck Neck: Supple, no meningeal sign - Cardiac Cardiac: RRR, Strong equal pulses, Other (systolic murmur) - Respiratory Respiratory: No respiratory distress - Abdomen Abdomen: Soft, Non tender, Non distended - Derm Derm: Normal color, Warm and dry, No rash - Extremities Extremities: No deformity, No tenderness to palpate, Normal ROM s pain, No edema - Neuro Neuro: Alert and oriented X 3, 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6 Plt Count 189 MPV 11.0 Neut # (Auto) 4.3 Lymph # (Auto) 1.6 [place] # (Auto) 0.4 Eos # (Auto) 0.2 Baso # (Auto) 0.0 Absolute Nucleated RBC 0.00 Nucleated RBC % 0.0 Sodium 137 Potassium 3.7 Chloride 103 Carbon Dioxide 25 Anion Gap 9.0 BUN 17 Creatinine 0.9 Estimated GFR (MDRD) 83 L Glucose 203 H Calcium 9.1 Total Bilirubin 0.5 AST 21 ALT 32 Alkaline Phosphatase 75 Troponin I High Sens 38.8 H* B-Natriuretic Peptide Cancelled Total Protein 6.7 Albumin 4.3 Globulin 2.4 Albumin/Globulin Ratio 1.8 Nasal Adenovirus (PCR) Nasal B. parapertussis DNA (PCR) Nasal Coronavir 229E PCR Nasal Coronavir HKU1 PCR Nasal Coronavir NL63 PCR Nasal Coronavir OC43 PCR Nasal Enterovir/Rhinovir PCR Nasal Influenza B PCR Nasal Influenza A PCR Nasal Parainfluen 1 PCR Nasal Parainfluen 2 PCR Nasal Parainfluen 3 PCR Nasal Parainfluen 4 PCR Nasal RSV (PCR) Nasal B.pertussis DNA PCR Nasal C.pneumoniae (PCR) [place] Human Metapneumo PCR Nasal M.pneumoniae (PCR) Nasal SARS-CoV-2 (PCR) 05/24/23 05/24/23 05/24/23 04:20 04:20 06:58 WBC RBC Hgb Hct MCV MCH MCHC RDW Plt Count MPV Neut # (Auto) Lymph # (Auto) [place] # (Auto) Eos # (Auto) Baso # (Auto) Absolute Nucleated RBC Nucleated RBC % Sodium Potassium Chloride Carbon Dioxide Anion Gap BUN Creatinine Estimated GFR (MDRD) Glucose Calcium Total Bilirubin AST ALT Alkaline Phosphatase Troponin I High Sens 39.3 H* B-Natriuretic Peptide 44 Total Protein Albumin Globulin Albumin/Globulin Ratio Nasal Adenovirus (PCR) NOT DETECTED Nasal B. parapertussis DNA (PCR) NOT DETECTED Nasal Coronavir 229E PCR NOT DETECTED Nasal Coronavir HKU1 PCR NOT DETECTED Nasal Coronavir NL63 PCR NOT DETECTED Nasal Coronavir OC43 PCR NOT DETECTED Nasal Enterovir/Rhinovir PCR NOT DETECTED Nasal Influenza B PCR NOT DETECTED Nasal Influenza A PCR NOT DETECTED Nasal Parainfluen 1 PCR NOT DETECTED Nasal Parainfluen 2 PCR NOT DETECTED Nasal Parainfluen 3 PCR NOT DETECTED Nasal Parainfluen 4 PCR NOT DETECTED Nasal RSV (PCR) NOT DETECTED Nasal B.pertussis DNA PCR NOT DETECTED Nasal C.pneumoniae (PCR) NOT DETECTED [place] Human Metapneumo PCR NOT DETECTED Nasal M.pneumoniae (PCR) NOT DETECTED Nasal SARS-CoV-2 (PCR) NOT DETECTED PD Medical Decision Making - ED course Complexity details: reviewed results, re-evaluated patient, considered differential, d/w patient, d/w family ED course: Well-appearing patient concerned that he may have pneumonia requiring antibiotics. Lungs are clear to auscultation bilaterally, vital signs are reviewed, unremarkable. Will obtain labs and x-ray imaging. Laboratory work is reviewed, no leukocytosis. Patient has borderline troponins, normal kidney function, no priors for comparison. Patient denies any chest pain over the last several days, he states that his weakness has resolved and he feels back to his baseline. We will repeat 2-hour troponin, if stable will discharge with PCP follow-up. 2-hour troponin stable. Cough medication sent to pharmacy of choice. Patient counseled on close PCP follow-up. ED return precautions discussed with patient and at bedside. Departure - Departure Disposition: 01 Home, Self Care Clinical Impression: Chest discomfort, Weakness Cough Qualifiers: Cough type: acute Qualified Code(s): R05.1 - Acute cough Condition: Stable Instructions: ED URI Viral Prescriptions: Hydrocodone Bit/Homatrop Me-Br [Hycodan 5 mg-1.5 mg/5 ml Soln] 5 ml PO Q6H PRN #150 ml PRN Reason: Cough HYDROcod/ACETAM 5/325 [[place] 5/325] 1 ea PO Q6H PRN #15 tablet PRN Reason: Cough Comments: Your repeat blood test was normal. Though your troponin which is an indicator of heart injury was slightly above the normal range, is not showing any increase or exchange mechanic time so no signs of acute injury. No signs of pneumonia on x- ray. Patient may have a viral type illness with a cough. Stay well-hydrated. Continue usual medicines. Forms: PCP List Discharge Date/Time: 05/24/23 08:30
[2023-05-24 04:42] LABS: BASOPHILS % (AUTO) 0.5 %; EOSINOPHILS # (AUTO) 0.2 10^3/uL (0.0-0.7); EOSINOPHILS % (AUTO) 2.6 %; HCT - HEMATOCRIT 42.9 % (42.0-52.0); LYMPHOCYTES # (AUTO) 1.6 10^3/uL (1.5-3.5); LYMPHOCYTES % (AUTO) 24.5 %; MEAN CORPUSCULAR HEMOGLOBIN 28.9 pg (27.0-31.0); MEAN CORPUSCULAR HGB CONC 32.6 g/dL (32.0-36.0); MEAN CORPUSCULAR VOLUME 88.5 fL (80.0-94.0); MONOCYTES # (AUTO) 0.4 10^3/uL (0.0-1.0); MONOCYTES % (AUTO) 6.3 %; NEUTROPHILS # (AUTO) 4.3 10^3/uL (1.5-6.6); NEUTROPHILS % (AUTO) 65.8 %; PLT - PLATELET COUNT 189 10^3/uL (130-450); RED BLOOD COUNT 4.85 10^6/uL (4.70-6.10); RED CELL DISTRIBUTION WIDTH 14.6 % (12.0-15.0); WHITE BLOOD COUNT 6.5 x10^3/uL (4.8-10.8)
[2023-05-24] MEDS: ONDANSETRON 4 MG/2 ML VIAL IVP STA (04:58)
[2023-05-24 05:14] VITALS: O2SAT 95
[2023-05-24 05:19] LABS: ALBUMIN 4.3 g/dL (3.2-5.5); ALBUMIN/GLOBULIN RATIO 1.8 (1.0-2.2); BILIRUBIN,TOTAL 0.5 mg/dL (0.2-1.0); CALCIUM 9.1 mg/dL (8.5-10.3); CREATININE 0.9 mg/dL (0.6-1.3); POTASSIUM 3.7 mmol/L (3.5-4.5); TOTAL PROTEIN 6.7 g/dL (6.4-8.9)
[2023-05-24 05:51] LABS: B. PARAPERTUSSIS- RESP PCR PAN NOT DETECTED; B. PERTUSSIS- RESP PCR PANEL NOT DETECTED; C. PNEUMONIAE- RESP PCR PANEL NOT DETECTED; CORONAVIRUS 229E-RESP PCR NOT DETECTED; CORONAVIRUS HKU1-RESP PCR NOT DETECTED; CORONAVIRUS NL63-RESP PCR NOT DETECTED; CORONAVIRUS OC43-RESP PCR NOT DETECTED; HUMAN METAPNEUMOVIRUS NOT DETECTED; INFLUENZA A- RESP PCR PANEL NOT DETECTED; INFLUENZA B - RESP PCR PANEL NOT DETECTED; M. PNEUMONIAE- RESP PCR PANEL NOT DETECTED; PARAINFLUENZA VIRUS 1 NOT DETECTED; PARAINFLUENZA VIRUS 2 NOT DETECTED; PARAINFLUENZA VIRUS 3 NOT DETECTED; PARAINFLUENZA VIRUS 4 NOT DETECTED; RHINOVIRUS/ENTEROVIRUS NOT DETECTED; RSV- RESP PCR PANEL NOT DETECTED; SARS-CoV-2 -RESP PCR PANEL NOT DETECTED
[2023-05-24 06:56] VITALS: BP 139/85
--- NOTE | 2023-05-24 07:06 | XRAY Report ---
PROCEDURE: Chest 1 View X-Ray INDICATIONS: dyspnea/cough TECHNIQUE: One view of the chest was acquired. COMPARISON: None. FINDINGS: Surgical changes and devices: None. Lungs and pleura: No pleural effusions or pneumothorax. Lungs are clear. Mediastinum: Mediastinal contours appear normal. Heart size is normal. Bones and chest wall: No suspicious bony lesions. Overlying soft tissues appear unremarkable. IMPRESSION: No acute cardiopulmonary process. Findings are concordant with preliminary interpretation provided by [facility]. Reviewed by: Dionisio Carroll MD on 05/24/2023 7:05 AM PST Approved by: Dionisio Carroll MD on 05/24/2023 7:05 AM [facility] Station ID: [id number]
--- NOTE | 2023-05-24 10:57 | ED Physician Documentation ---
ED Addendum - Addendum Addendum: 05/24/23 10:56 The [facility] pharmacy called. They do not stock the hydrocodone cough syrup ordered by the previous provider. I substituted it with hydrocodone tablet in the spirit of similar medication as provided by the overnight physician. [facility] pharmacy had that in stock and would fill it for him.
== END 2023-05-24 08:30 | disposition home or self-care (01) ==
LOC: ED 03:52
DX: R07.89 Other chest pain (principal); R53.1 Weakness; R05.9 Cough, unspecified; E11.9 Type 2 diabetes mellitus without complications; E78.00 Pure hypercholesterolemia, unspecified; Z11.52 Encounter for screening for COVID-19; Z79.84 Long term (current) use of oral hypoglycemic drugs; Z79.899 Other long term (current) drug therapy; Z79.82 Long term (current) use of aspirin
CPT/HCPCS: 36415; 80053; 83880; 84484; 85025; 87633; 93005; 96374; 99284

== ENCOUNTER 2023-10-20 12:34 | Emergency (ER) | payer MEDICARE, OTHER ==
[2023-10-20 13:53] LABS: BASOPHILS % (AUTO) 0.4 %; EOSINOPHILS % (AUTO) 0.1 %; HCT - HEMATOCRIT 41.4 % (42.0-52.0); HGB - HEMOGLOBIN 13.2 g/dL (14.0-18.0); LYMPHOCYTES % (AUTO) 11.9 %; MEAN CORPUSCULAR HEMOGLOBIN 28.9 pg (27.0-31.0); MEAN CORPUSCULAR HGB CONC 31.9 g/dL (32.0-36.0); MEAN CORPUSCULAR VOLUME 90.6 fL (80.0-94.0); MEAN PLATELET VOLUME 10.6 fL (7.4-11.4); MONOCYTES # (AUTO) 0.3 10^3/uL (0.0-1.0); MONOCYTES % (AUTO) 3.2 %; NEUTROPHILS # (AUTO) 7.1 10^3/uL (1.5-6.6); PLT - PLATELET COUNT 197 10^3/uL (130-450); RED BLOOD COUNT 4.57 10^6/uL (4.70-6.10); RED CELL DISTRIBUTION WIDTH 14.6 % (12.0-15.0); WHITE BLOOD COUNT 8.4 x10^3/uL (4.8-10.8)
--- NOTE | 2023-10-20 14:02 | ED Physician Documentation ---
PD HPI CHEST PAIN - Stated complaint Stated Complaint: CHEST PX,TIGHTNESS - Chief complaint Chief Complaint: Cardiac - History obtained from History obtained from: Patient, Family - History of Present Illness Timing - onset during: Light activity Timing - details: Gradual onset Pain level max: 4 Pain level now: 0 Quality: Pressure, Tightness. No: Aching, Sharp, Tearing, Dull, Stabbing Radiation: No: Jaw, Neck, Back, Abdominal, Left upper extremity, Right upper extremity Improved by: Rest Worsened by: Exertion - Additional information Additional information: Patient is a 73-year-old male who presents to the emergency department stating that he has had worsening chest pain over the past 1 year. Only occurs with exertion. States usually can walk about a block before he has to stop due to pressure in his chest and feeling out of breath. Usually resolves within about a minute. Does not have any cardiac history. He states he is a diabetic, sees Dr. Bartlett as his primary care provider. He states he has never had a cardiac stress test. Not having any symptoms currently. Worse with exertion, better with rest. No cough. No congestion. Review of Systems Constitutional: denies: Fever, Chills Respiratory: denies: Cough GI: denies: Nausea, Vomiting, Diarrhea : denies: Dysuria Skin: denies: Rash Musculoskeletal: denies: Neck pain, Back pain Neurologic: denies: Headache PD PAST MEDICAL HISTORY - Past Medical History Cardiovascular: High cholesterol Respiratory: None Neuro: None Endocrine/Autoimmune: Type 2 diabetes GI: GERD : None HEENT: None Psych: Depression Musculoskeletal: None Derm: Eczema - Past Surgical History Past Surgical History: No Ortho: Arthroscopic surgery - Present Medications Home Medications: Ambulatory Orders Medication Instructions Recorded Confirmed Metformin HCl 1,000 mg PO BID 04/15/14 01/09/20 Glimepiride 1 mg PO BID 07/30/16 01/09/20 Omeprazole 20 mg PO DAILY 12/09/18 01/09/20 dexAMETHasone [Decadron] 4 mg PO DAILY #5 tablet 03/20/20 Aspirin [Aspirin EC] 06/09/20 Finasteride [Proscar] 06/09/20 06/09/20 Meloxicam [Mobic] 7.5 mg PO BID PRN #20 tablet 06/09/20 PredniSONE [PredniSONE INTENSOL] 06/09/20 Rosuvastatin Calcium [Crestor] 06/09/20 06/09/20 methylPREDNISolone [Medrol] 4 mg PO DAILY #1 tab.ds.pk 06/09/20 HYDROcod/ACETAM 5/325 [[place] 5/325] 1 - 2 tablet PO Q6H PRN #10 tablet 10/20/20 HYDROcod/ACETAM 5/325 [[place] 5/325] 1 ea PO Q6H PRN #15 tablet 05/24/23 Hydrocodone Bit/Homatrop Me-Br 5 ml PO Q6H PRN #150 ml 05/24/23 [Hycodan 5 mg-1.5 mg/5 ml Soln] Aspirin EC [Ecotrin] 325 mg PO DAILY #30 tablet 10/20/23 - Allergies Allergies/Adverse Reactions: Allergies Allergy/AdvReac Type Severity Reaction Status Date / Time levofloxacin [From Levaquin] AdvReac Anxiety Verified 10/20/23 12:51 - Social History Does the pt smoke?: No Smoking Status: Never smoker Does the pt drink ETOH?: Yes Does the pt have substance abuse?: No - Immunizations Immunizations are current?: Yes - POLST Patient has POLST: No PD ED PE NORMAL - Vitals Vital signs reviewed: Yes - General General: Alert and oriented X 3, No acute distress - HEENT HEENT: Moist mucous membranes - Neck Neck: Supple, no meningeal sign - Cardiac Cardiac: RRR, Strong equal pulses - Respiratory Respiratory: No respiratory distress, Clear bilaterally - Abdomen Abdomen: Soft, Non tender, Non distended - Derm Derm: Warm and dry - Extremities Extremities: No edema, No calf tenderness / cord - Neuro Neuro: Alert and oriented X 3 - Psych Psych: Normal mood, Normal affect Results - Vitals Vitals: Vital Signs - 24 hr 10/20/23 10/20/23 10/20/23 12:49 12:51 13:21 Temperature 36.2 C L 36.5 C Heart Rate 92 92 78 Respiratory 16 16 18 Rate Blood Pressure 155/83 H 155/83 H 131/72 H O2 Saturation 97 97 95 10/20/23 10/20/23 10/20/23 13:30 14:00 14:30 Temperature 36.5 C Heart Rate 78 79 70 Respiratory 14 14 14 Rate Blood Pressure 128/79 135/83 H 140/80 H O2 Saturation 96 98 96 Oxygen O2 Source Room air - EKG (time done) 1248 EKG releavant findings:: EKG personally interpreted by author of this note. Relevant findings are: Rate: Rate (enter#) (82) Rhythm: NSR [place]: Normal Intervals: Normal NE QRS: Normal Ischemia: Normal ST segments - Labs Labs: Laboratory Tests 10/20/23 10/20/23 13:17 13:17 WBC 8.4 RBC 4.57 L Hgb 13.2 L Hct 41.4 L MCV 90.6 MCH 28.9 MCHC 31.9 L RDW 14.6 Plt Count 197 MPV 10.6 Neut # (Auto) 7.1 H Lymph # (Auto) 1.0 L [place] # (Auto) 0.3 Eos # (Auto) 0.0 Baso # (Auto) 0.0 Absolute Nucleated RBC 0.00 Nucleated RBC % 0.0 Sodium 136 Potassium 4.2 Chloride 104 Carbon Dioxide 23 Anion Gap 9.0 BUN 16 Creatinine 0.9 Estimated GFR (MDRD) 83 L Glucose 223 H Calcium 10.2 Total Bilirubin 0.4 AST 15 ALT 20 Alkaline Phosphatase 58 Troponin I High Sens 22.3 H* Total Protein 6.7 Albumin 4.1 Globulin 2.6 Albumin/Globulin Ratio 1.6 Lipase 24 - Rads (name of study) cxr Relevant Findings:: Final report received, See rad report PD Medical Decision Making - ED course Complexity details: reviewed results, re-evaluated patient, considered differential, d/w patient ED course: Patient is not having any symptoms here. His EKG does not show any acute abnormalities. Chest x-ray does not show any acute abnormalities. High- sensitivity troponin is minimally elevated without symptoms in the last 6 hours. No significant elevation of the high-sensitivity troponin to indicate an acute NSTEMI Discussed the case with his primary care provider, Dr. Bartlett, recommend close outpatient follow-up for cardiac stress test. Will start him on aspirin daily. Unstable angina precautions given including need to be seen emergently for pain that occurs at rest, pain that does not resolve with rest or other new or worrisome symptoms. Patient counseled regarding signs and symptoms for which I believe and urgent re-evaluation would be necessary. Patient with good understanding of and agreement to plan and is comfortable going home at this time This document was made in part using voice recognition software. While efforts are made to proofread this document, sound alike and grammatical errors may occur. Departure - Departure Disposition: 01 Home, Self Care Clinical Impression: Chest pain Qualifiers: Chest pain type: unspecified Qualified Code(s): R07.9 - Chest pain, unspecified Condition: Good Instructions: ED Chest Pain Angina Stable Follow-Up: Sterling Bartlett MD [Primary Care Provider] - Within 3 Days Prescriptions: Aspirin EC [Ecotrin] 325 mg PO DAILY #30 tablet Comments: Your prescription was sent to [facility] in [place]. It is importantly follow- up closely with Dr. Bartlett for cardiac stress test. I spoke with Dr. Bartlett today. We will start you on an aspirin daily. Please avoid any strenuous activity until you have had your stress test. If you start to develop pain at rest or pain that does not resolve after you stop activity, you need to be seen in the closest emergency department. As we discussed the closest hospitals with cardiology on site are [facility] in [place] and [facility] in [place]. Forms: PCP List Discharge Date/Time: 10/20/23 14:49
[2023-10-20 14:12] LABS: ALBUMIN 4.1 g/dL (3.2-5.5); ALBUMIN/GLOBULIN RATIO 1.6 (1.0-2.2); BILIRUBIN,TOTAL 0.4 mg/dL (0.2-1.0); CALCIUM 10.2 mg/dL (8.5-10.3); CREATININE 0.9 mg/dL (0.6-1.3); POTASSIUM 4.2 mmol/L (3.5-4.5); TOTAL PROTEIN 6.7 g/dL (6.4-8.9)
[2023-10-20 14:17] LABS: TROPONIN I HIGH SENSITIVITY 22.3 ng/L (2.3-19.7)
[2023-10-20] MEDS: ASPIRIN CHEW 81 MG TABLET PO STA (14:22)
[2023-10-20 14:41] VITALS: BP 140/80; O2SAT 96
--- NOTE | 2023-10-20 14:50 | XRAY Report ---
PROCEDURE: Chest 1V INDICATIONS: Chest Pain TECHNIQUE: One view of the chest was acquired. COMPARISON: Chest radiographs 05/24/2023. FINDINGS: Surgical changes and devices: None. Lungs and pleura: No pleural effusions or pneumothorax. Lungs are clear. Mediastinum: Mediastinal contours appear normal. Heart size is normal. Bones and chest wall: No suspicious bony lesions. Overlying soft tissues appear unremarkable. IMPRESSION: No acute cardiopulmonary process. Reviewed by: Gera Lake MD on 10/20/2023 2:48 PM PDT Approved by: Gera Lake MD on 10/20/2023 2:48 PM PDT Station ID: [id number]
== END 2023-10-20 14:49 | disposition home or self-care (01) ==
LOC: ED 12:34
DX: R07.9 Chest pain, unspecified (principal); E11.9 Type 2 diabetes mellitus without complications; E78.00 Pure hypercholesterolemia, unspecified; Z79.82 Long term (current) use of aspirin; Z79.84 Long term (current) use of oral hypoglycemic drugs; Z79.899 Other long term (current) drug therapy
CPT/HCPCS: 36415; 71045; 80053; 83690; 84484; 85025; 93005; 99284; A9270